=== PATIENT | female | born 1965 | race African-American/Black ===

== ENCOUNTER 2022-10-16 09:11 | Outpatient (REF) | payer BC, SELFPAY ==
[2022-10-16 11:19] LABS: MANUAL DIFF FLAG NO
[2022-10-16 11:25] LABS: Basophils Percent Auto 0.4 % (0-2); Eosinophils Absolute Auto 0.2 X10*3/uL (0.0-0.4); Eosinophils Percent Auto 2.5 % (0-4); Hematocrit 41.5 % (37.0-47.0); Hemoglobin 14.2 g/dl (12.0-16.0); Imm Gran Abs Auto 0.02 X10*3/uL (0.00-0.03); Imm Gran Pct Auto 0.3 % (0.0-0.4); Lymphocytes Absolute Auto 2.5 X10*3/uL (1.2-4.9); Lymphocytes Percent Auto 32.5 % (20-40); Mean Corpuscular HGB Conc 34.2 g/dl (31.0-35.0); Mean Corpuscular Hemoglobin 26.2 pg (27.0-33.0); Mean Corpuscular Volume 76.4 fL (80.0-98.0); Mean Platelet Volume 11.2 fL (9.4-12.3); Monocytes Absolute Auto 0.6 X10*3/uL (0.1-1.2); Monocytes Percent Auto 7.8 % (2-11); Neutrophils Absolute Auto 4.3 x10*3/uL (2.0-8.3); Neutrophils Percent Auto 56.5 % (45-73); Platelet Count 289 X10*3/uL (160-400); Red Blood Count 5.43 X10*6/uL (4.20-5.50); Red Cell Distribution Width 14.5 % (11.0-16.0); White Blood Count 7.5 X10*3/uL (4.8-10.8)
[2022-10-16 11:34] LABS: Alanine Aminotransferase 21 U/L (0-31); Albumin Level 4.3 g/dL (3.5-5.0); Alkaline Phosphatase 81 U/L (39-117); Anion Gap 15 (12-20); Aspartate Amino Transferase 18 U/L (5-31); Bilirubin Total 0.6 mg/dL (0.0-1.0); Blood Urea Nitrogen 22 mg/dL (9-16); Calcium 10.1 mg/dL (8.4-10.2); Carbon Dioxide 32 mmol/L (22-29); Chloride 98 mmol/L (96-108); Cholesterol 216 mg/dL; Estimated Glomerular Filt Rate > 60; Glucose Fasting 115 mg/dL (60-99); HDL Cholesterol 40 mg/dL; LDL Cholesterol Calculated 152 mg/dl; Potassium 3.9 mmol/L (3.3-5.1); Sodium 141 mmol/L (135-145); Total Protein 8.5 g/dL (6.5-8.0); Triglycerides 123 mg/dL
[2022-10-16 11:57] LABS: TSH reflex Free T4 0.55 uIU/mL (0.32-4.0)
== END 2022-10-16 09:12 | disposition home or self-care (01) ==
LOC: HO.HMGCLDS 09:11
PROVIDERS: PCP Internal Medicine; Visit Provider Internal Medicine
DX: Z00.01 Encounter for general adult medical examination with abnormal findings (principal); E66.01 Morbid (severe) obesity due to excess calories; I10 Essential (primary) hypertension
CPT/HCPCS: 36415; 80053; 80061; 84443; 85025

== ENCOUNTER 2023-03-09 07:56 | Outpatient (REF) | payer BC, SELFPAY ==
[2023-03-09 12:09] LABS: Estimated Average Glucose 114 mg/dL; Hemoglobin A1c % 5.6 %
[2023-03-09 12:32] LABS: Alanine Aminotransferase 22 U/L (0-31); Albumin Level 3.9 g/dL (3.5-5.0); Alkaline Phosphatase 80 U/L (39-117); Anion Gap 12 (12-20); Aspartate Amino Transferase 18 U/L (5-31); Bilirubin Total 0.3 mg/dL (0.0-1.0); Blood Urea Nitrogen 22 mg/dL (9-16); Calcium 9.6 mg/dL (8.4-10.2); Carbon Dioxide 29 mmol/L (22-29); Chloride 103 mmol/L (96-108); Cholesterol 144 mg/dL; Estimated Glomerular Filt Rate > 60; Glucose Fasting 112 mg/dL (60-99); HDL Cholesterol 38 mg/dL; LDL Cholesterol Calculated 90 mg/dl; Potassium 3.7 mmol/L (3.3-5.1); Sodium 140 mmol/L (135-145); Total Protein 7.6 g/dL (6.5-8.0); Triglycerides 80 mg/dL
== END 2023-03-09 07:57 | disposition home or self-care (01) ==
LOC: HO.HMGCLDS 07:56
PROVIDERS: PCP Internal Medicine; Visit Provider Internal Medicine
DX: E78.9 Disorder of lipoprotein metabolism, unspecified (principal); E66.01 Morbid (severe) obesity due to excess calories; I10 Essential (primary) hypertension; R73.01 Impaired fasting glucose; G89.29 Other chronic pain; M25.512 Pain in left shoulder
CPT/HCPCS: 36415; 80053; 80061; 83036

== ENCOUNTER 2023-05-31 12:24 | Outpatient (AMB) | payer OTHER, BC, SELFPAY ==
[2023-05-31 12:57] VITALS: BP 124/72; PULSE 84; TEMP 36.6; O2SAT 98
--- NOTE | 2023-05-31 12:57 | MHC.OFFWIV ---
Intake Vital Signs 05/31/23 12:57 Height 5 ft 3 in BP 124/72 Blood Pressure Location Lt brachial Position Sitting Pulse 84 Pulse Source Pulse Oximeter Temp 98 F Temp Source Temporal Artery Scan Pulse Oximetry (%) 98 Oxygen Delivery Method Room Air Intake Visit Reasons: EP Cough, Mucus, fever, Headache [phone] Intake Note: Pt is here c/o having a headache, and a bad cough for a few days. Patient Tobacco Use Status: Never used Tobacco Allergies doxycycline Allergy (Mild, Verified 05/31/23 13:59) Swelling latex Allergy (Mild, Verified 05/31/23 13:59) Itching levofloxacin [From Levaquin] Adverse Reaction (Mild, Verified 05/31/23 13:59) Swelling metronidazole [From Flagyl] Adverse Reaction (Mild, Verified 05/31/23 13:59) Swelling Medication List - Last Reconciled 05/31/23 by Benigno Martin MD esomeprazole magnesium (Nexium 24HR) 20 mg PO DAILY hydrochlorothiazide 25 mg PO DAILY metoprolol tartrate 25 mg PO BID 90 days naproxen 500 mg PO BID simvastatin 20 mg PO DAILY 90 days Do you need a note to return to daycare/school/sports/work: Yes HPI EP Cough, Mucus, fever, Headache [phone] HPI Details Patient presents for a sick visit. Reporting symptoms of sinus congestion, sore throat and difficulty swallowing. Low-grade fever. No family member is sick. No recent travel. Patient reports symptoms of malaise and fatigue. Symptoms present for the past 4 weeks PFSH Family History Mother Hypertension Obesity Lymphedema Brain tumor (benign) Father Hypertension Family/Other Family history of prostate cancer Family history of breast cancer Social History Housing: House Patient Tobacco Use Status: Never used Tobacco e-Cigarette/Vaping Use: Never Used Second Hand Smoke Exposure: No Current occupational status: employed Cognitive needs: No Hearing needs: No Vision needs: Yes Physical Exam Vital Signs: Last Vital Signs Temp 98 F 05/31/23 12:57 Pulse 84 05/31/23 12:57 BP 124/72 05/31/23 12:57 Pulse Ox 98 05/31/23 12:57 Oxygen Delivery Method Room Air 05/31/23 12:57 Const General: cooperative and healthy appearing Nutritional Appearance: well nourished Orientation/consciousness: patient oriented x3 Limitations: no limitations HEENT Head: Yes normal to inspection Eyes General: appearance normal, both eyes and all related structures Neck Neck: Yes normal visual inspection Chest Chest palpation & inspection: normal palpation of entire chest wall Resp Effort & Inspection: normal respiratory effort Neuro General: patient oriented x3 Assessment & Plan Assessment & Plan (1) Acute bronchitis: Code(s): J20.9 - Acute bronchitis, unspecified Plan: Chest x-ray was reviewed by me personally. No infiltrate seen. Antibiotics ordered. Increase fluid intake. Tylenol for aches and pains. If symptoms worsen, follow-up here for a recheck. Orders: Orders XR chest 2V Today J20.9 - Acute bronchitis, unspecified Coding Level of Care Code Est Pt Level 4 (17450) Diagnoses Acute bronchitis J20.9
== END 2023-05-31 15:12 | disposition home or self-care (01) ==
PROVIDERS: PCP Internal Medicine; Visit Provider Internal Medicine
DX: J20.9 Acute bronchitis, unspecified (principal)
CPT/HCPCS: 99214

== ENCOUNTER 2023-05-31 13:54 | Outpatient (REF) | payer BC, OTHER, SELFPAY | END 2023-05-31 13:55 | disposition home or self-care (01) | LOC: HO.HMGCX 13:54 | PROVIDERS: PCP Internal Medicine; Visit Provider Internal Medicine | DX: J20.9 Acute bronchitis, unspecified (principal) | CPT/HCPCS: 71046 ==

== ENCOUNTER 2023-07-07 09:04 | Outpatient (REF) | payer BC, SELFPAY ==
[2023-07-07 11:37] LABS: Estimated Average Glucose 111 mg/dL; Hemoglobin A1c % 5.5 %
[2023-07-07 12:04] LABS: Alanine Aminotransferase 27 U/L (0-31); Alkaline Phosphatase 70 U/L (39-117); Anion Gap 12 (12-20); Aspartate Amino Transferase 19 U/L (5-31); Bilirubin Total 0.4 mg/dL (0.0-1.0); Blood Urea Nitrogen 17 mg/dL (9-16); Calcium 10.3 mg/dL (8.4-10.2); Carbon Dioxide 31 mmol/L (22-29); Chloride 100 mmol/L (96-108); Estimated Glomerular Filt Rate > 60; Glucose Random 109 mg/dL (60-115); Potassium 3.5 mmol/L (3.3-5.1); Sodium 139 mmol/L (135-145); Total Protein 8.5 g/dL (6.5-8.0)
== END 2023-07-07 09:05 | disposition home or self-care (01) ==
LOC: HO.HMGCLDS 09:04
PROVIDERS: PCP Internal Medicine; Visit Provider Internal Medicine
DX: E66.01 Morbid (severe) obesity due to excess calories (principal); E78.9 Disorder of lipoprotein metabolism, unspecified; I10 Essential (primary) hypertension; R73.01 Impaired fasting glucose
CPT/HCPCS: 36415; 80053; 83036

== ENCOUNTER 2023-09-01 08:19 | Outpatient (AMB) | payer BC, SELFPAY ==
--- NOTE | 2023-09-01 08:23 | MHC.PC.OV ---
Vital Signs 09/01/23 08:27 Height 5 ft 3 in Weight 239 lb BMI 42.3 BP 130/82 Blood Pressure Location Lt brachial Position Sitting Pulse 105 H Pulse Source Pulse Oximeter Pulse Oximetry (%) 93 Oxygen Delivery Method Room Air Intake Visit Reasons: Follow-up Allergies doxycycline Allergy (Mild, Verified 09/01/23 08:24) Swelling latex Allergy (Mild, Verified 09/01/23 08:24) Itching levofloxacin [From Levaquin] Adverse Reaction (Mild, Verified 09/01/23 08:24) Swelling metronidazole [From Flagyl] Adverse Reaction (Mild, Verified 09/01/23 08:24) Swelling Medication List - Last Reconciled 09/01/23 by Javon Woody MD benzonatate 100 mg PO BID PRN 10 days esomeprazole magnesium (Nexium 24HR) 20 mg PO DAILY hydrochlorothiazide 25 mg PO DAILY metoprolol tartrate 25 mg PO BID 90 days naproxen 500 mg PO BID simvastatin 20 mg PO DAILY 90 days Tobacco use date assessed: 09/01/23 Dental Screening Dental Screen Date: 09/01/23 Did you have a dental visit in the last 12 months?: No Did you have a dental problem in the last 6 months where you did not have access to dental care?: No Was dental information given to patient?: Patient has dentist HPI Follow-up HPI Details Patient is a 58-year-old female came in today for her regular follow-up appointment Says that she lost weight after having meetings with the dietitian but then she went on a cruise and gained it back She will go back to her dieting again, her BMI is 42.3 Impaired fasting sugar: We are monitoring hemoglobin A1c, at that point patient just need to control her diet Blood pressure is stable patient is taking hydrochlorothiazide 25 mg and metoprolol 25 mg, tolerating medication Lipid disorder: LDL is also well controlled , patient is on simvastatin 20 mg and is tolerating it well. She continued to take naproxen 500 b.i.d. p.r.n. for shoulder pain which is chronic. Follow-up 4 months [facility] Family History Mother Hypertension Obesity Lymphedema Brain tumor (benign) Father Hypertension Family/Other Family history of prostate cancer Family history of breast cancer Social History Housing: House Patient Tobacco Use Status: Never used Tobacco e-Cigarette/Vaping Use: Never Used Second Hand Smoke Exposure: No Current occupational status: employed Cognitive needs: No Hearing needs: No Vision needs: Yes Questionnaire PHQ-9 Over the last 2 weeks, how often have you been bothered by any of the following problems? 1. Little interest or pleasure in doing things: not at all 2. Feeling down, depressed, or hopeless: not at all 3. Trouble falling or staying asleep, or sleeping too much: not at all 4. Feeling tired or having little energy: not at all 5. Poor appetite or overeating: not at all 6. Feeling bad about yourself - or that you are a failure or have let yourself or your family down: not at all 7. Trouble concentrating on things, such as reading the newspaper or watching television: not at all 8. Moving or speaking so slowly that other people could have noticed. Or the opposite - being so fidgety or restless that you have been moving around a lot more than usual: not at all 9. Thoughts that you would be better off or of hurting yourself in some way: not at all Total score: 0 Depression Screening Interpretation: Negative Depression Screening Done: Yes 05500 - PHQ-9 Billing: Yes Source: Developed by Drs. Errol Carrillo, Gabriela Bull, Mateo Jeter and colleagues, with an educational bhanu from [employer]. Thrive Questionnaire Date Thrive assessed: 09/01/23 I am a: Patient What is your living situation today?: I have a steady place to live Within the past 12 months, did the food you bought not last and you didn't have the money to get more?: Never true Within the past 12 months, did you worry whether your food would run out before you got money to buy more?: Never true Do you have trouble paying for medicines?: No Do you have trouble getting transportation to medical appointments?: No Do you have trouble paying your heating and electricity bill?: No Do you have trouble taking care of your child, family member or friend?: No Do you have trouble with day-to-day activities such as bathing, preparing meals, shopping, managing finances, etc.?: No Are you currently unemployed and looking for a job?: No Are you interested in more education?: No AUDIT C Alcohol Use Questionnaire (AUDIT-C) 1. How often do you have a drink containing alcohol?: Never 3. How often do you have six or more drinks on one occasion?: Never Total Score: 0 Score Reviewed/Action Taken: Yes KE-7 AMB Questionnaire KE-7 Date KE - 7 assessed: 09/01/23 Feeling nervous, anxious, or on edge: 0 = Not at all Not being able to stop or control worryin = Not at all Worrying too much about different things: 0 = Not at all Trouble relaxin = Not at all Being so restless that it is hard to sit still: 0 = Not at all Becoming easily annoyed or irritable: 0 = Not at all Feeling afraid as if something awful might happen: 0 = Not at all Total KE-7 score (0-4 normal; 5-9 mild; 10-14 moderate; 15-21 severe): 0 Source: Developed by Drs. Errol Carrillo, Gabriela Bull, Mateo Jeter and colleagues, with an educational bhanu from [employer]. KE-7 Assessment Billing KE-7 Assessment Tool: KE-7 Assessment 22941 Review of Systems Const Denies chills, Denies excessive sweating, Denies fever(s) and Denies poor appetite Eyes Denies blurry vision and Denies eye pain ENT Denies disequilibrium, Denies sore throat, Denies throat swelling and Denies tongue swelling Card Denies chest pain at rest, Denies radiating jaw, neck or arm pain and Denies paroxysmal nocturnal dyspnea Resp Denies cough and Denies hemoptysis GI Denies melena, Denies change in stool character, Denies coffee ground emesis and Denies vomiting Musc Reports as per HPI Skin/Breast Reports as per HPI Neuro Denies tremor(s) and Denies disequilibrium Endo Denies cold intolerance and Denies excessive sweating Aller/Immun Denies throat swelling and Denies tongue swelling Physical exam (Primary Care) Vital Signs: Last Vital Signs Pulse 105 H 09/01/23 08:27 BP 130/82 09/01/23 08:27 Pulse Ox 93 09/01/23 08:27 Oxygen Delivery Method Room Air 09/01/23 08:27 BMI result Body Mass Index 42.3 Tobacco/Smoking Status: Tobacco use Status Tobacco use date assessed 09/01/23 09/01/23 08:30 Patient Tobacco Use Status Never used Tobacco 09/01/23 08:30 e-Cigarette/Vaping Use Never Used 09/01/23 08:30 Depression Screening Interpretation: Negative Thrive Assessment: Date of Thrive Assessment Date Thrive assessed 08/07/22 09/01/23 08:30 Const General: cooperative, comfortable and no acute distress Orientation/consciousness: patient oriented x3 HENMT Head: Yes normocephalic and Yes atraumatic Ears: hearing grossly normal bilaterally Eyes General: appearance normal, both eyes and all related structures Neck Neck: Yes no lymphadenopathy and No tracheal deviation Resp Effort & Inspection: normal respiratory effort, able to speak in complete sentences and no audible wheezes Cardio Rhythm: regular rhythm Heart sounds: S1 normal heart sound present and S2 normal heart sound present GI Palpation (GI): Soft to palpation and nontender Auscultation: normal bowel sounds Skin General skin exam: turgor normal Neuro General: patient oriented x3 and moves all extremities Gait exam (Neuro): Normal gait present Extrem Right lower extremity: no edema Left lower extremity: no edema Psych Affect: normal affect Attitude: cooperative Assessment and Plan Assessment & Plan (1) Hypertension, essential: Code(s): I10 - Essential (primary) hypertension (2) Morbid obesity due to excess calories: Comment: If your BMI is between 25 and 29.9, you are overweight. If your BMI is 30 or greater, you are obese. ___ Being obese is a problem, because it increases the risks of many different health problems. It can also make it hard for you to move, breathe, and do other things that people who are at a healthy weight can do easily. Plus, being obese can be hard emotionally. ___ What are the health risks of being obese? Being obese increases a persons risk of developing many health problems. Here are just a few examples: __ Diabetes High blood pressure, High cholesterol, Heart disease (including heart attacks) Stroke, Sleep apnea (a disorder in which you stop breathing for short periods while asleep) Asthma, Cancer __ Does being obese shorten a persons life? Yes. Studies show that people who are obese younger than people who are a healthy weight. They also show that the risk of goes up the heavier a person is. The degree of increased risk depends on how long the person has been obese, and on what other medical problems he or she has. , Reduce your carbohydrate intake and choose carbs that are complex. Remember as a general rule of thumb, avoid highly processed foods. If it's white and soft, it's probably been stripped of its nutritional value. Change white bread to whole wheat bread, white rice to brown rice, white potatoes to sweet potatoes, white pasta to whole wheat pasta. Monitor portion sizes too: protein should be no bigger than your fist. Limit your red meat intake to only once or twice a wk. Eat more white meat but make sure to avoid creamy sauces etc. Broiling, baking or grilling is best. Increase dark, green leafy vegetables and fruits. Code(s): E66.01 - Morbid (severe) obesity due to excess calories (3) Impaired fasting blood sugar: Code(s): R73.01 - Impaired fasting glucose (4) Lipid disorder: Code(s): E78.9 - Disorder of lipoprotein metabolism, unspecified Plan Patient is a 58-year-old female came in today for her regular follow-up appointment Says that she lost weight after having meetings with the dietitian but then she went on a cruise and gained it back She will go back to her dieting again, her BMI is 42.3 Impaired fasting sugar: We are monitoring hemoglobin A1c, at that point patient just need to control her diet Blood pressure is stable patient is taking hydrochlorothiazide 25 mg and metoprolol 25 mg, tolerating medication Lipid disorder: LDL is also well controlled , patient is on simvastatin 20 mg and is tolerating it well. She continued to take naproxen 500 b.i.d. p.r.n. for shoulder pain which is chronic. Labs done in June reviewed with the patient Follow-up 4 months Coding Level of Care Code Est Pt Level 4 (19255) Diagnoses Hypertension, essential I10 Morbid obesity due to excess calories E66.01 Impaired fasting blood sugar R73.01 Lipid disorder E78.9 Additional Codes KE-7 Assessment Billing - KE-7 Assessment Tool: KE-7 Assessment 52770 ([id number])
[2023-09-01 08:27] VITALS: BP 130/82; PULSE 105; O2SAT 93; BMI 42.3
== END 2023-09-01 08:47 | disposition home or self-care (01) ==
PROVIDERS: PCP Internal Medicine; Visit Provider Internal Medicine
DX: I10 Essential (primary) hypertension (principal); E66.01 Morbid (severe) obesity due to excess calories; E78.9 Disorder of lipoprotein metabolism, unspecified; Z68.41 Body mass index [BMI] 40.0-44.9, adult; R73.01 Impaired fasting glucose
CPT/HCPCS: 99214

== ENCOUNTER 2024-01-12 09:14 | Outpatient (AMB) | payer BC, SELFPAY ==
[2024-01-12 09:22] VITALS: BP 122/84; PULSE 84; O2SAT 98; BMI 43.8
--- NOTE | 2024-01-12 09:22 | A.OFFPC_ITS ---
Vital Signs 3 01/12/24 09:22 Height 5 ft 3 in Weight 247 lb 6 oz BMI 43.8 BP 122/84 Blood Pressure Location Lt brachial Position Sitting Pulse 84 Pulse Source Pulse Oximeter Pulse Oximetry (%) 98 Oxygen Delivery Method Room Air Intake Visit Reasons: 4 month fu Allergies doxycycline Allergy (Mild, Verified 01/12/24 09:24) Swelling latex Allergy (Mild, Verified 01/12/24 09:24) Itching levofloxacin [From Levaquin] Adverse Reaction (Mild, Verified 01/12/24 09:24) Swelling metronidazole [From Flagyl] Adverse Reaction (Mild, Verified 01/12/24 09:24) Swelling Medication List - Last Reconciled 01/12/24 by Javon Woody MD esomeprazole magnesium (Nexium 24HR) 20 mg PO DAILY hydrochlorothiazide 25 mg PO DAILY metoprolol tartrate 25 mg PO BID 90 days naproxen 500 mg PO BID simvastatin 20 mg PO DAILY 90 days Tobacco use date assessed: 01/12/24 Dental Screening Dental Screen Date: 01/12/24 Did you have a dental visit in the last 12 months?: No Did you have a dental problem in the last 6 months where you did not have access to dental care?: No Was dental information given to patient?: Patient has dentist HPI 4 month fu 2 HPI0 Details Patient is a 58-year-old female came in today for her regular follow-up appointment Patient says that she be watching TV feel as if she need to take deep breaths, patient says that she feels as if she is anxious She also clenches her teeth at night She would like to start medication for anxiety, I have sent citalopram 10 mg tablets patient is to take half a tablet for a week and then full tablet She is also having pain in left breast off and on, however on examination there are no lumps or nipple discharge there is no skin changes Labs are due to be done today BMI is elevated patient need to lose weight Impaired fasting sugar: We are monitoring hemoglobin A1c, at that point patient just need to control her diet Blood pressure is stable patient is taking hydrochlorothiazide 25 mg and metoprolol 25 mg, tolerating medication Lipid disorder: LDL is also well controlled , patient is on simvastatin 20 mg and is tolerating it well. She continued to take naproxen 500 b.i.d. p.r.n. for shoulder pain which is chronic. We will book telemedicine visit in 3 weeks to follow-up on anxiety medication Follow-up 4 months [facility] Family History Mother Hypertension Obesity Lymphedema Brain tumor (benign) Father Hypertension Family/Other Family history of prostate cancer Family history of breast cancer Social History Housing: House Patient Tobacco Use Status: Never used Tobacco e-Cigarette/Vaping Use: Never Used Second Hand Smoke Exposure: No service: No Current occupational status: employed Cognitive needs: No Hearing needs: No Vision needs: Yes Questionnaire PHQ-9 Over the last 2 weeks, how often have you been bothered by any of the following problems? 1. Little interest or pleasure in doing things: not at all 2. Feeling down, depressed, or hopeless: not at all 3. Trouble falling or staying asleep, or sleeping too much: not at all 4. Feeling tired or having little energy: not at all 5. Poor appetite or overeating: not at all 6. Feeling bad about yourself - or that you are a failure or have let yourself or your family down: not at all 7. Trouble concentrating on things, such as reading the newspaper or watching television: not at all 8. Moving or speaking so slowly that other people could have noticed. Or the opposite - being so fidgety or restless that you have been moving around a lot more than usual: not at all 9. Thoughts that you would be better off or of hurting yourself in some way: not at all Total score: 0 Depression Screening Interpretation: Negative Depression Screening Done: Yes 28573 - PHQ-9 Billing: Yes Source: Developed by Drs. Errol Carrillo, Gabriela Bull, Mateo Jeter and colleagues, with an educational bhanu from [address] [employer] I. Thrive Questionnaire Date Thrive assessed: 01/12/24 I am a: Patient What is your living situation today?: I have a steady place to live Within the past 12 months, did the food you bought not last and you didn't have the money to get more?: Never true Within the past 12 months, did you worry whether your food would run out before you got money to buy more?: Never true Do you have trouble paying for medicines?: No Do you have trouble getting transportation to medical appointments?: No Do you have trouble paying your heating and electricity bill?: No Do you have trouble taking care of your child, family member or friend?: No Do you have trouble with day-to-day activities such as bathing, preparing meals, shopping, managing finances, etc.?: No Are you currently unemployed and looking for a job?: No Are you interested in more education?: No Please select the resources that you would like help with: None Currently or been in a relationship where the following occur: no concerns reported THRIVE Score: 0 AUDIT C Alcohol Use Questionnaire (AUDIT-C) 1. How often do you have a drink containing alcohol?: Monthly or less 2. How many drinks containing alcohol do you have on a typical day when you are drinking?: 1 or 2 3. How often do you have six or more drinks on one occasion?: Never Total Score: 1 Score Reviewed/Action Taken: Yes KE-7 AMB Questionnaire KE-7 Date KE - 7 assessed: 01/12/24 Feeling nervous, anxious, or on edge: 0 = Not at all Not being able to stop or control worryin = Not at all Worrying too much about different things: 0 = Not at all Trouble relaxin = Several days Being so restless that it is hard to sit still: 0 = Not at all Becoming easily annoyed or irritable: 0 = Not at all Feeling afraid as if something awful might happen: 0 = Not at all Total KE-7 score (0-4 normal; 5-9 mild; 10-14 moderate; 15-21 severe): 1 Source: Developed by Drs. Errol Carrillo, Gabriela Bull, Maeto Jeter and colleagues, with an educational bhanu from [address] [employer] I. KE-7 Assessment Billing KE-7 Assessment Tool: KE-7 Assessment 07103 Review of Systems Const Denies chills and Denies fever(s) ENT Denies epistaxis and Denies nasal discharge Card Denies chest pain Resp Denies chest congestion, Denies cough and Denies hemoptysis GI Denies diarrhea and Denies nausea Skin/Breast Denies rash Neuro Reports no additional complaints Psych Reports no additional complaints Endo Reports no additional complaints Physical exam (Primary Care) Vital Signs: Last Vital Signs Pulse 84 01/12/24 09:22 BP 122/84 01/12/24 09:22 Pulse Ox 98 01/12/24 09:22 Oxygen Delivery Method Room Air 01/12/24 09:22 BMI result Body Mass Index 43.8 Tobacco/Smoking Status: Tobacco use Status Tobacco use date assessed 01/12/24 01/12/24 09:25 Patient Tobacco Use Status Never used Tobacco 01/12/24 09:25 e-Cigarette/Vaping Use Never Used 01/12/24 09:25 PHQ-9: PHQ-9 Score PHQ-9: Total score 0 01/12/24 09:52 Depression Screening Interpretation: Negative Thrive Assessment: Date of Thrive Assessment Date Thrive assessed 01/12/24 01/12/24 09:27 Currently or been in a relationship where the following occur: no concerns reported Const General: cooperative, comfortable and no acute distress Orientation/consciousness: patient oriented x3 HENMT Head: Yes normocephalic Eyes General: appearance normal, both eyes and all related structures Neck Neck: Yes supple Chest Chest/axillae images: 2 1. No lumps felt, no nipple discharge, no skin changes Resp Effort & Inspection: normal respiratory effort, no cough and no stridor Cardio Rhythm: regular rhythm Heart sounds: S1 normal heart sound present and S2 normal heart sound present Skin General skin exam: turgor normal Neuro General: patient oriented x3, tone normal and moves all extremities Extrem Right lower extremity: no edema Left lower extremity: no edema Assessment and Plan Assessment & Plan (1) Hypertension, essential: Code(s): I10 - Essential (primary) hypertension (2) Lipid disorder: Code(s): E78.9 - Disorder of lipoprotein metabolism, unspecified (3) Impaired fasting blood sugar: Code(s): R73.01 - Impaired fasting glucose (4) Morbid obesity due to excess calories: Comment: If your BMI is between 25 and 29.9, you are overweight. If your BMI is 30 or greater, you are obese. ___ Being obese is a problem, because it increases the risks of many different health problems. It can also make it hard for you to move, breathe, and do other things that people who are at a healthy weight can do easily. Plus, being obese can be hard emotionally. ___ What are the health risks of being obese? Being obese increases a persons risk of developing many health problems. Here are just a few examples: __ Diabetes High blood pressure, High cholesterol, Heart disease (including heart attacks) Stroke, Sleep apnea (a disorder in which you stop breathing for short periods while asleep) Asthma, Cancer __ Does being obese shorten a persons life? Yes. Studies show that people who are obese younger than people who are a healthy weight. They also show that the risk of goes up the heavier a person is. The degree of increased risk depends on how long the person has been obese, and on what other medical problems he or she has. , Reduce your carbohydrate intake and choose carbs that are complex. Remember as a general rule of thumb, avoid highly processed foods. If it's white and soft, it's probably been stripped of its nutritional value. Change white bread to whole wheat bread, white rice to brown rice, white potatoes to sweet potatoes, white pasta to whole wheat pasta. Monitor portion sizes too: protein should be no bigger than your fist. Limit your red meat intake to only once or twice a wk. Eat more white meat but make sure to avoid creamy sauces etc. Broiling, baking or grilling is best. Increase dark, green leafy vegetables and fruits. Code(s): E66.01 - Morbid (severe) obesity due to excess calories (5) Anxiety, generalized: Code(s): F41.1 - Generalized anxiety disorder (6) Breast pain, left: Code(s): N64.4 - Mastodynia Plan Patient is a 58-year-old female came in today for her regular follow-up appointment Patient says that she be watching TV feel as if she need to take deep breaths, patient says that she feels as if she is anxious She also clenches her teeth at night She would like to start medication for anxiety, I have sent citalopram 10 mg tablets patient is to take half a tablet for a week and then full tablet She is also having pain in left breast off and on, however on examination there are no lumps or nipple discharge there is no skin changes Labs are due to be done today BMI is elevated patient need to lose weight Impaired fasting sugar: We are monitoring hemoglobin A1c, at that point patient just need to control her diet Blood pressure is stable patient is taking hydrochlorothiazide 25 mg and metoprolol 25 mg, tolerating medication Lipid disorder: LDL is also well controlled , patient is on simvastatin 20 mg and is tolerating it well. She continued to take naproxen 500 b.i.d. p.r.n. for shoulder pain which is chronic. We will book telemedicine visit in 3 weeks to follow-up on anxiety medication Follow-up 4 months Orders: Orders 2 Complete Blood Count Auto Diff Today E66.01 - Morbid (severe) obesity due to excess calories, E78.9 - Disorder of lipoprotein metabolism, unspecified, I10 - Essential (primary) hypertension, R73.01 - Impaired fasting glucose Comprehensive Met. Panel Today E66.01 - Morbid (severe) obesity due to excess calories, E78.9 - Disorder of lipoprotein metabolism, unspecified, I10 - Essential (primary) hypertension, R73.01 - Impaired fasting glucose LDL Cholesterol Direct Today E66.01 - Morbid (severe) obesity due to excess calories, E78.9 - Disorder of lipoprotein metabolism, unspecified, I10 - Essential (primary) hypertension, R73.01 - Impaired fasting glucose Medications: New 2 escitalopram oxalate (Lexapro) 10 mg PO DAILY 30 tabs 0RF Coding Level of Care Code Est Pt Level 4 (64318) Diagnoses Hypertension, essential I10 Lipid disorder E78.9 Impaired fasting blood sugar R73.01 Morbid obesity due to excess calories E66.01 Anxiety, generalized F41.1 Breast pain, left N64.4 Additional Codes KE-7 Assessment Billing - KE-7 Assessment Tool: KE-7 Assessment 74944 ([id number])
== END 2024-01-12 09:53 | disposition home or self-care (01) ==
PROVIDERS: PCP Internal Medicine; Visit Provider Internal Medicine
DX: I10 Essential (primary) hypertension (principal); E66.01 Morbid (severe) obesity due to excess calories; Z68.41 Body mass index [BMI] 40.0-44.9, adult; E78.9 Disorder of lipoprotein metabolism, unspecified; R73.01 Impaired fasting glucose; F41.1 Generalized anxiety disorder; N64.4 Mastodynia
CPT/HCPCS: 99214

== ENCOUNTER 2024-01-12 09:54 | Outpatient (REF) | payer BC, SELFPAY ==
[2024-01-12 13:19] LABS: MANUAL DIFF FLAG NO
[2024-01-12 13:41] LABS: Basophils Percent Auto 0.3 % (0-2); Eosinophils Absolute Auto 0.1 X10*3/uL (0.0-0.4); Eosinophils Percent Auto 2.3 % (0-4); Hematocrit 39.7 % (37.0-47.0); Hemoglobin 13.7 g/dl (12.0-16.0); Imm Gran Abs Auto 0.01 X10*3/uL (0.00-0.03); Imm Gran Pct Auto 0.2 % (0.0-0.4); Lymphocytes Percent Auto 32.1 % (20-40); Mean Corpuscular HGB Conc 34.5 g/dl (31.0-35.0); Mean Corpuscular Hemoglobin 26.9 pg (27.0-33.0); Mean Corpuscular Volume 77.8 fL (80.0-98.0); Monocytes Absolute Auto 0.5 X10*3/uL (0.1-1.2); Monocytes Percent Auto 8.3 % (2-11); Neutrophils Absolute Auto 3.5 x10*3/uL (2.0-8.3); Neutrophils Percent Auto 56.8 % (45-73); Platelet Count 260 X10*3/uL (160-400); Red Cell Distribution Width 14.2 % (11.0-16.0); White Blood Count 6.1 X10*3/uL (4.8-10.8)
[2024-01-12 13:53] LABS: Alanine Aminotransferase 22 U/L (0-31); Albumin Level 3.9 g/dL (3.5-5.0); Alkaline Phosphatase 70 U/L (39-117); Anion Gap 10 (12-20); Aspartate Amino Transferase 19 U/L (5-31); Bilirubin Total 0.3 mg/dL (0.0-1.0); Blood Urea Nitrogen 22 mg/dL (9-16); Calcium 10.2 mg/dL (8.4-10.2); Carbon Dioxide 34 mmol/L (22-29); Chloride 103 mmol/L (96-108); Estimated Glomerular Filt Rate > 60; Glucose Random 102 mg/dL (60-115); Sodium 143 mmol/L (135-145)
[2024-01-13 14:08] LABS: LDL Cholesterol Direct 74 mg/dL (<100)
== END 2024-01-12 09:55 | disposition home or self-care (01) ==
LOC: HO.HMGCLDS 09:54
PROVIDERS: PCP Internal Medicine; Visit Provider Internal Medicine
DX: E78.9 Disorder of lipoprotein metabolism, unspecified (principal); R73.01 Impaired fasting glucose; E66.01 Morbid (severe) obesity due to excess calories; I10 Essential (primary) hypertension
CPT/HCPCS: 36415; 80053; 83721; 85025

== ENCOUNTER 2024-02-03 08:47 | Outpatient (AMB) | payer BC, SELFPAY ==
--- NOTE | 2024-02-03 08:45 | MHC.PC.OV ---
Intake Visit Reasons: 3 week Follow up Intake Note: [phone] iPhone Allergies doxycycline Allergy (Mild, Verified 02/03/24 08:45) Swelling latex Allergy (Mild, Verified 02/03/24 08:45) Itching levofloxacin [From Levaquin] Adverse Reaction (Mild, Verified 02/03/24 08:45) Swelling metronidazole [From Flagyl] Adverse Reaction (Mild, Verified 02/03/24 08:45) Swelling Medication List - Last Reconciled 02/03/24 by Javon Woody MD escitalopram oxalate (Lexapro) 10 mg PO DAILY esomeprazole magnesium (Nexium 24HR) 20 mg PO DAILY hydrochlorothiazide 25 mg PO DAILY metoprolol tartrate 25 mg PO BID 90 days naproxen 500 mg PO BID simvastatin 20 mg PO DAILY 90 days Tobacco use date assessed: 02/03/24 Dental Screening Dental Screen Date: 02/03/24 Did you have a dental visit in the last 12 months?: Yes Did you have a dental problem in the last 6 months where you did not have access to dental care?: No Was dental information given to patient?: Patient has dentist HPI 3 week Follow up HPI Details Patient is a 58 year old female this is a video conference I started her on Lexapro 10 mg few days ago when patient verbalized to feeling anxious She is tolerating medication and is feeling better, patient says that she is able to sleep through the night And when she is watching TV she is not feeling as anxious as before For now we going to continue with the 10 mg of Lexapro she has appointment end of March we will re-evaluate and increase the dose if needed Labs were done recently reviewed with the patient. [facility] Family History Mother Hypertension Obesity Lymphedema Brain tumor (benign) Father Hypertension Family/Other Family history of prostate cancer Family history of breast cancer Social History Housing: House Patient Tobacco Use Status: Never used Tobacco e-Cigarette/Vaping Use: Never Used Second Hand Smoke Exposure: No service: No Current occupational status: employed Cognitive needs: No Hearing needs: No Vision needs: Yes Questionnaire Thrive Questionnaire Date Thrive assessed: 01/12/24 AUDIT C Alcohol Use Questionnaire (AUDIT-C) 1. How often do you have a drink containing alcohol?: Never 3. How often do you have six or more drinks on one occasion?: Never Total Score: 0 KE-7 AMB Questionnaire KE-7 Date KE - 7 assessed: 01/12/24 Source: Developed by Drs. Errol Carrillo, Gabriela Bull, Mateo Jeter and colleagues, with an educational bhanu from [employer]. Review of Systems Const Denies chills and Denies fever(s) ENT Denies epistaxis and Denies nasal discharge Card Denies chest pain Resp Denies chest congestion, Denies cough and Denies hemoptysis GI Denies diarrhea and Denies nausea Skin/Breast Denies rash Neuro Reports no additional complaints Psych Reports no additional complaints Endo Reports no additional complaints Physical exam (Primary Care) Tobacco/Smoking Status: Tobacco use Status Tobacco use date assessed 02/03/24 02/03/24 08:47 Patient Tobacco Use Status Never used Tobacco 02/03/24 08:47 e-Cigarette/Vaping Use Never Used 02/03/24 08:47 Thrive Assessment: Date of Thrive Assessment Date Thrive assessed 01/12/24 02/03/24 08:47 Telehealth Telehealth Location of provider rendering services: practice address Location of patient: address on file Patient Identification confirmed using: Name, : Yes Telehealth method: video Patient verbally consented to treatment: Yes Patient verbally consented to billing insurance company: Yes Patient informed of any privacy concerns related to visit: Yes Minutes spent on Phone/Video with Pt.: 13 Assessment and Plan Assessment & Plan (1) Anxiety, generalized: Code(s): F41.1 - Generalized anxiety disorder Plan Patient is a 58 year old female this is a video conference I started her on Lexapro 10 mg few days ago when patient verbalized to feeling anxious She is tolerating medication and is feeling better, patient says that she is able to sleep through the night And when she is watching TV she is not feeling as anxious as before For now we going to continue with the 10 mg of Lexapro she has appointment end of March we will re-evaluate and increase the dose if needed Labs were done recently reviewed with the patient. Medications: Refilled escitalopram oxalate (Lexapro) 10 mg PO DAILY 90 tabs 0RF Coding Level of Care Code Tele Est Pt Level 3 (94480) Diagnoses Anxiety, generalized F41.1
== END 2024-02-03 15:14 | disposition home or self-care (01) ==
LOC: HO.HMGC 08:47
PROVIDERS: PCP Internal Medicine; Visit Provider Internal Medicine
DX: F41.1 Generalized anxiety disorder (principal)
CPT/HCPCS: 99213

== ENCOUNTER 2024-05-05 08:07 | Outpatient (AMB) | payer BC, SELFPAY ==
--- NOTE | 2024-05-05 08:08 | MHC.PC.OV ---
Vital Signs 05/05/24 08:10 Height 5 ft 3 in Weight 244 lb BMI 43.2 BP 110/76 Blood Pressure Location Lt brachial Position Sitting Pulse 82 Pulse Source Pulse Oximeter Pulse Oximetry (%) 96 Oxygen Delivery Method Room Air Intake Visit Reasons: Follow up Allergies doxycycline Allergy (Mild, Verified 05/05/24 08:10) Swelling latex Allergy (Mild, Verified 05/05/24 08:10) Itching levofloxacin [From Levaquin] Adverse Reaction (Mild, Verified 05/05/24 08:10) Swelling metronidazole [From Flagyl] Adverse Reaction (Mild, Verified 05/05/24 08:10) Swelling Medication List - Last Reconciled 05/05/24 by Javon Woody MD escitalopram oxalate 20 mg PO DAILY esomeprazole magnesium (Nexium 24HR) 20 mg PO DAILY hydrochlorothiazide 25 mg PO DAILY metoprolol tartrate 25 mg PO BID 90 days naproxen 500 mg PO BID simvastatin 20 mg PO DAILY 90 days Tobacco use date assessed: 02/03/24 Dental Screening Dental Screen Date: 02/03/24 HPI Follow up HPI Details Patient is a 59-year-old female came in today for her regular follow-up appointment Anxiety stable patient is on escitalopram 20 mg daily and is tolerating medication Labs are due to be done today BMI is elevated patient need to lose weight Impaired fasting sugar: We are monitoring hemoglobin A1c, at that point patient just need to control her diet Blood pressure is stable patient is taking hydrochlorothiazide 25 mg and metoprolol 25 mg, tolerating medication Lipid disorder: LDL is also well controlled , patient is on simvastatin 20 mg and is tolerating it well. She continued to take naproxen 500 b.i.d. p.r.n. for shoulder pain which is chronic. Offer no new complaints Follow-up early August [facility] Family History Mother Hypertension Obesity Lymphedema Brain tumor (benign) Father Hypertension Family/Other Family history of prostate cancer Family history of breast cancer Social History Housing: House Patient Tobacco Use Status: Never used Tobacco e-Cigarette/Vaping Use: Never Used Second Hand Smoke Exposure: No service: No Current occupational status: employed Cognitive needs: No Hearing needs: No Vision needs: Yes Questionnaire Thrive Questionnaire Date Thrive assessed: 01/12/24 KE-7 AMB Questionnaire KE-7 Date KE - 7 assessed: 01/12/24 Source: Developed by Drs. Errol Carrillo, Gabriela Bull, Mateo Jeter and colleagues, with an educational bhanu from [employer]. Review of Systems Const Denies chills and Denies fever(s) ENT Denies epistaxis and Denies nasal discharge Card Denies chest pain Resp Denies chest congestion, Denies cough and Denies hemoptysis GI Denies diarrhea and Denies nausea Skin/Breast Denies rash Neuro Reports no additional complaints Psych Reports no additional complaints Endo Reports no additional complaints Physical exam (Primary Care) Vital Signs: Last Vital Signs Pulse 82 05/05/24 08:10 BP 110/76 05/05/24 08:10 Pulse Ox 96 05/05/24 08:10 Oxygen Delivery Method Room Air 05/05/24 08:10 BMI result Body Mass Index 43.2 Tobacco/Smoking Status: Tobacco use Status Tobacco use date assessed 02/03/24 05/05/24 08:12 Patient Tobacco Use Status Never used Tobacco 05/05/24 08:12 e-Cigarette/Vaping Use Never Used 05/05/24 08:12 Thrive Assessment: Date of Thrive Assessment Date Thrive assessed 01/12/24 05/05/24 08:12 Const General: cooperative, comfortable and no acute distress Orientation/consciousness: patient oriented x3 HENMT Head: Yes normocephalic Eyes General: appearance normal, both eyes and all related structures Neck Neck: Yes supple Resp Effort & Inspection: normal respiratory effort, no cough and no stridor Cardio Rhythm: regular rhythm Heart sounds: S1 normal heart sound present and S2 normal heart sound present Skin General skin exam: turgor normal Neuro General: patient oriented x3, tone normal and moves all extremities Extrem Right lower extremity: no edema Left lower extremity: no edema Assessment and Plan Assessment & Plan (1) Lipid disorder: Code(s): E78.9 - Disorder of lipoprotein metabolism, unspecified (2) Impaired fasting blood sugar: Code(s): R73.01 - Impaired fasting glucose (3) Hypertension, essential: Code(s): I10 - Essential (primary) hypertension (4) Morbid obesity due to excess calories: Comment: If your BMI is between 25 and 29.9, you are overweight. If your BMI is 30 or greater, you are obese. ___ Being obese is a problem, because it increases the risks of many different health problems. It can also make it hard for you to move, breathe, and do other things that people who are at a healthy weight can do easily. Plus, being obese can be hard emotionally. ___ What are the health risks of being obese? Being obese increases a persons risk of developing many health problems. Here are just a few examples: __ Diabetes High blood pressure, High cholesterol, Heart disease (including heart attacks) Stroke, Sleep apnea (a disorder in which you stop breathing for short periods while asleep) Asthma, Cancer __ Does being obese shorten a persons life? Yes. Studies show that people who are obese younger than people who are a healthy weight. They also show that the risk of goes up the heavier a person is. The degree of increased risk depends on how long the person has been obese, and on what other medical problems he or she has. , Reduce your carbohydrate intake and choose carbs that are complex. Remember as a general rule of thumb, avoid highly processed foods. If it's white and soft, it's probably been stripped of its nutritional value. Change white bread to whole wheat bread, white rice to brown rice, white potatoes to sweet potatoes, white pasta to whole wheat pasta. Monitor portion sizes too: protein should be no bigger than your fist. Limit your red meat intake to only once or twice a wk. Eat more white meat but make sure to avoid creamy sauces etc. Broiling, baking or grilling is best. Increase dark, green leafy vegetables and fruits. Code(s): E66.01 - Morbid (severe) obesity due to excess calories (5) Anxiety, generalized: Code(s): F41.1 - Generalized anxiety disorder Plan Patient is a 59-year-old female came in today for her regular follow-up appointment Anxiety stable patient is on escitalopram 20 mg daily and is tolerating medication Labs are due to be done today BMI is elevated patient need to lose weight Impaired fasting sugar: We are monitoring hemoglobin A1c, at that point patient just need to control her diet Blood pressure is stable patient is taking hydrochlorothiazide 25 mg and metoprolol 25 mg, tolerating medication Lipid disorder: LDL is also well controlled , patient is on simvastatin 20 mg and is tolerating it well. She continued to take naproxen 500 b.i.d. p.r.n. for shoulder pain which is chronic. Offer no new complaints Follow-up early August Orders: Orders Complete Blood Count Auto Diff Today E66.01 - Morbid (severe) obesity due to excess calories, E78.9 - Disorder of lipoprotein metabolism, unspecified, F41.1 - Generalized anxiety disorder, I10 - Essential (primary) hypertension, R73.01 - Impaired fasting glucose Hemoglobin A1c Today R73.01 - Impaired fasting glucose Comprehensive [place]. Panel Fast Today E66.01 - Morbid (severe) obesity due to excess calories, E78.9 - Disorder of lipoprotein metabolism, unspecified, F41.1 - Generalized anxiety disorder, I10 - Essential (primary) hypertension, R73.01 - Impaired fasting glucose Lipid Panel Today E66.01 - Morbid (severe) obesity due to excess calories, E78.9 - Disorder of lipoprotein metabolism, unspecified, F41.1 - Generalized anxiety disorder, I10 - Essential (primary) hypertension, R73.01 - Impaired fasting glucose Coding Level of Care Code Est Pt Level 4 (49407) Diagnoses Lipid disorder E78.9 Impaired fasting blood sugar R73.01 Hypertension, essential I10 Morbid obesity due to excess calories E66.01 Anxiety, generalized F41.1
[2024-05-05 08:10] VITALS: BP 110/76; PULSE 82; O2SAT 96; BMI 43.2
== END 2024-05-05 08:43 | disposition home or self-care (01) ==
PROVIDERS: PCP Internal Medicine; Visit Provider Internal Medicine
DX: E78.9 Disorder of lipoprotein metabolism, unspecified (principal); E66.01 Morbid (severe) obesity due to excess calories; Z68.41 Body mass index [BMI] 40.0-44.9, adult; R73.01 Impaired fasting glucose; I10 Essential (primary) hypertension; F41.1 Generalized anxiety disorder
CPT/HCPCS: 99214

== ENCOUNTER 2024-05-05 08:30 | Outpatient (REF) | payer BC, SELFPAY ==
[2024-05-05 10:28] LABS: MANUAL DIFF FLAG NO
[2024-05-05 10:35] LABS: Basophils Percent Auto 0.5 % (0-2); Eosinophils Absolute Auto 0.1 X10*3/uL (0.0-0.4); Eosinophils Percent Auto 1.8 % (0-4); Hematocrit 40.3 % (37.0-47.0); Hemoglobin 13.9 g/dl (12.0-16.0); Imm Gran Abs Auto 0.02 X10*3/uL (0.00-0.03); Imm Gran Pct Auto 0.3 % (0.0-0.4); Lymphocytes Absolute Auto 1.8 X10*3/uL (1.2-4.9); Lymphocytes Percent Auto 29.8 % (20-40); Mean Corpuscular HGB Conc 34.5 g/dl (31.0-35.0); Mean Corpuscular Hemoglobin 26.6 pg (27.0-33.0); Mean Corpuscular Volume 77.2 fL (80.0-98.0); Mean Platelet Volume 10.8 fL (9.4-12.3); Monocytes Absolute Auto 0.5 X10*3/uL (0.1-1.2); Neutrophils Absolute Auto 3.7 x10*3/uL (2.0-8.3); Neutrophils Percent Auto 59.6 % (45-73); Platelet Count 264 X10*3/uL (160-400); Red Blood Count 5.22 X10*6/uL (4.20-5.50); Red Cell Distribution Width 14.3 % (11.0-16.0); White Blood Count 6.1 X10*3/uL (4.8-10.8)
[2024-05-05 10:38] LABS: Estimated Average Glucose 117 mg/dL; Hemoglobin A1c % 5.7 % (<6.0)
[2024-05-05 11:03] LABS: Alanine Aminotransferase 21 U/L (0-31); Albumin Level 4.1 g/dL (3.5-5.0); Alkaline Phosphatase 73 U/L (39-117); Anion Gap 12 (12-20); Aspartate Amino Transferase 18 U/L (5-31); Bilirubin Total 0.3 mg/dL (0.0-1.0); Blood Urea Nitrogen 21 mg/dL (9-16); Calcium 10.1 mg/dL (8.4-10.2); Carbon Dioxide 30 mmol/L (22-29); Chloride 100 mmol/L (96-108); Cholesterol 150 mg/dL (<200); Estimated Glomerular Filt Rate > 60; Glucose Fasting 110 mg/dL (60-99); HDL Cholesterol 40 mg/dL (>40); LDL Cholesterol Calculated 91 mg/dL (<100); Potassium 3.7 mmol/L (3.3-5.1); Sodium 138 mmol/L (135-145); Total Protein 8.2 g/dL (6.5-8.0); Triglycerides 95 mg/dL (<150)
== END 2024-05-05 08:31 | disposition home or self-care (01) ==
LOC: HO.HMGCLDS 08:30
PROVIDERS: PCP Internal Medicine; Visit Provider Internal Medicine
DX: E78.9 Disorder of lipoprotein metabolism, unspecified (principal); R73.01 Impaired fasting glucose; I10 Essential (primary) hypertension; E66.01 Morbid (severe) obesity due to excess calories; F41.1 Generalized anxiety disorder
CPT/HCPCS: 36415; 80053; 80061; 83036; 85025

== ENCOUNTER 2024-06-30 12:00 | Outpatient (AMB) | payer BC, SELFPAY ==
--- NOTE | 2024-06-30 12:01 | MHC.PC.OV ---
Vital Signs 06/30/24 12:02 Height 5 ft 3 in Weight 243 lb BMI 43.0 BP 134/78 Blood Pressure Location Rt brachial Position Sitting Pulse 75 Pulse Source Pulse Oximeter Pulse Oximetry (%) 96 Oxygen Delivery Method Room Air Intake Visit Reasons: Bowel INC Allergies doxycycline Allergy (Mild, Verified 06/30/24 12:02) Swelling latex Allergy (Mild, Verified 06/30/24 12:02) Itching levofloxacin [From Levaquin] Adverse Reaction (Mild, Verified 06/30/24 12:02) Swelling metronidazole [From Flagyl] Adverse Reaction (Mild, Verified 06/30/24 12:02) Swelling Medication List - Last Reconciled 06/30/24 by Javon Woody MD escitalopram oxalate 20 mg PO DAILY esomeprazole magnesium (Nexium 24HR) 20 mg PO DAILY hydrochlorothiazide 25 mg PO DAILY metoprolol tartrate 25 mg PO BID 90 days naproxen 500 mg PO BID simvastatin 20 mg PO DAILY 90 days Tobacco use date assessed: 06/30/24 Dental Screening Dental Screen Date: 06/30/24 Did you have a dental visit in the last 12 months?: Yes Did you have a dental problem in the last 6 months where you did not have access to dental care?: No Was dental information given to patient?: Patient has dentist HPI Bowel INC HPI Details 59-year-old female came in today to talk about rectal incontinence Patient says that it has had happened before but not to an extent that she had recently Patient says that few days ago it has happened but at that time she was having a stomach bug so she did not think too much of it But then the other day she got up from bed in the morning and she had incontinence and at that time she was not feeling sick in her stomach She does have history of IBS diarrhea predominant alternate with constipation She is taking no laxatives Patient says that when it happened initially she started taking probiotic and it that did help She had colonoscopy 9 years ago and that was within normal limit She is almost due for colonoscopy as well There is no blood in stool is no nausea vomiting no abdominal pain there is no fever I am treating her with dicyclomine to be taken 20 minutes before meal I have also placed referral for her to be evaluated by colorectal surgeon. PFSH Family History Mother Hypertension Obesity Lymphedema Brain tumor (benign) Father Hypertension Family/Other Family history of prostate cancer Family history of breast cancer Social History Housing: House Patient Tobacco Use Status: Never used Tobacco e-Cigarette/Vaping Use: Never Used Second Hand Smoke Exposure: No service: No Current occupational status: employed Cognitive needs: No Hearing needs: No Vision needs: Yes Questionnaire PHQ-9 Over the last 2 weeks, how often have you been bothered by any of the following problems? 1. Little interest or pleasure in doing things: not at all 2. Feeling down, depressed, or hopeless: not at all 3. Trouble falling or staying asleep, or sleeping too much: not at all 4. Feeling tired or having little energy: not at all 5. Poor appetite or overeating: not at all 6. Feeling bad about yourself - or that you are a failure or have let yourself or your family down: not at all 7. Trouble concentrating on things, such as reading the newspaper or watching television: not at all 8. Moving or speaking so slowly that other people could have noticed. Or the opposite - being so fidgety or restless that you have been moving around a lot more than usual: not at all 9. Thoughts that you would be better off or of hurting yourself in some way: not at all Total score: 0 Depression Screening Interpretation: Negative Depression Screening Done: Yes 88669 - PHQ-9 Billing: Yes Source: Developed by Drs. Errol Carrillo, Gabriela Bull, Mateo Jeter and colleagues, with an educational bhanu from [employer]. Thrive Questionnaire Date Thrive assessed: 06/30/24 I am a: Patient What is your living situation today?: I have a steady place to live Within the past 12 months, did the food you bought not last and you didn't have the money to get more?: Never true Within the past 12 months, did you worry whether your food would run out before you got money to buy more?: Never true Do you have trouble paying for medicines?: No Do you have trouble getting transportation to medical appointments?: No Do you have trouble paying your heating and electricity bill?: No Do you have trouble taking care of your child, family member or friend?: No Do you have trouble with day-to-day activities such as bathing, preparing meals, shopping, managing finances, etc.?: No Are you currently unemployed and looking for a job?: No Are you interested in more education?: No Please select the resources that you would like help with: Housing/Group Home Currently or been in a relationship where the following occur: No concerns reported THRIVE Score: 0 AUDIT C Alcohol Use Questionnaire (AUDIT-C) 1. How often do you have a drink containing alcohol?: Monthly or less 2. How many drinks containing alcohol do you have on a typical day when you are drinking?: 1 or 2 3. How often do you have six or more drinks on one occasion?: Never Total Score: 1 Score Reviewed/Action Taken: Yes KE-7 AMB Questionnaire KE-7 Date KE - 7 assessed: 06/30/24 Feeling nervous, anxious, or on edge: 0 = Not at all Not being able to stop or control worryin = Not at all Worrying too much about different things: 0 = Not at all Trouble relaxin = Not at all Being so restless that it is hard to sit still: 0 = Not at all Becoming easily annoyed or irritable: 0 = Not at all Feeling afraid as if something awful might happen: 0 = Not at all Total KE-7 score (0-4 normal; 5-9 mild; 10-14 moderate; 15-21 severe): 0 Source: Developed by Drs. Errol Carrillo, Gabriela Bull, Mateo Jeter and colleagues, with an educational bhanu from [employer]. KE-7 Assessment Billing KE-7 Assessment Tool: KE-7 Assessment 80210 Review of Systems Const Denies chills and Denies fever(s) ENT Denies epistaxis and Denies nasal discharge Card Denies chest pain Resp Denies chest congestion, Denies cough and Denies hemoptysis GI Denies nausea Skin/Breast Denies rash Neuro Reports no additional complaints Psych Reports no additional complaints Endo Reports no additional complaints Physical exam (Primary Care) Vital Signs: Last Vital Signs Pulse 75 06/30/24 12:02 BP 134/78 06/30/24 12:02 Pulse Ox 96 06/30/24 12:02 Oxygen Delivery Method Room Air 06/30/24 12:02 BMI result Body Mass Index 43.0 Tobacco/Smoking Status: Tobacco use Status Tobacco use date assessed 06/30/24 06/30/24 12:05 Patient Tobacco Use Status Never used Tobacco 06/30/24 12:05 e-Cigarette/Vaping Use Never Used 06/30/24 12:05 PHQ-9: PHQ-9 Score PHQ-9: Total score 0 06/30/24 12:05 Depression Screening Interpretation: Negative Thrive Assessment: Date of Thrive Assessment Date Thrive assessed 06/30/24 06/30/24 12:05 Currently or been in a relationship where the following occur: No concerns reported Const General: cooperative, comfortable and no acute distress Orientation/consciousness: patient oriented x3 HENMT Head: Yes normocephalic Eyes General: appearance normal, both eyes and all related structures Neck Neck: Yes supple Resp Effort & Inspection: normal respiratory effort, no cough and no stridor Cardio Rhythm: regular rhythm Heart sounds: S1 normal heart sound present and S2 normal heart sound present GI Other: Abdomen is soft, nontender, bowel sounds positive Skin General skin exam: turgor normal Neuro General: patient oriented x3, tone normal and moves all extremities Extrem Right lower extremity: no edema Left lower extremity: no edema Assessment and Plan Assessment & Plan (1) Rectal incontinence: Code(s): R15.9 - Full incontinence of feces Qualifiers: Fecal incontinence type: full incontinence of feces Qualified Code(s): R15.9 - Full incontinence of feces (2) Irritable bowel syndrome: Code(s): K58.9 - Irritable bowel syndrome without diarrhea Qualifiers: Irritable bowel syndrome type: with both diarrhea and constipation Qualified Code(s): K58.2 - Mixed irritable bowel syndrome Plan 59-year-old female came in today to talk about rectal incontinence Patient says that it has had happened before but not to an extent that she had recently Patient says that few days ago it has happened but at that time she was having a stomach bug so she did not think too much of it But then the other day she got up from bed in the morning and she had incontinence and at that time she was not feeling sick in her stomach She does have history of IBS diarrhea predominant alternate with constipation She is taking no laxatives Patient says that when it happened initially she started taking probiotic and it that did help She had colonoscopy 9 years ago and that was within normal limit She is almost due for colonoscopy as well There is no blood in stool is no nausea vomiting no abdominal pain there is no fever I am treating her with dicyclomine to be taken 20 minutes before meal I have also placed referral for her to be evaluated by colorectal surgeon. Orders: Referrals Colon & Rectal Referral R15.9 - Full incontinence of feces Coding Level of Care Code Est Pt Level 4 (03241) Diagnoses Full incontinence of feces R15.9 Fecal incontinence type: full incontinence of feces Irritable bowel syndrome with both constipation and diarrhea K58.2 Irritable bowel syndrome type: with both diarrhea and constipation Additional Codes KE-7 Assessment Billing - KE-7 Assessment Tool: KE-7 Assessment 36063 ([id number])
[2024-06-30 12:02] VITALS: BP 134/78; PULSE 75; O2SAT 96; BMI 43.0
== END 2024-06-30 12:22 | disposition home or self-care (01) ==
PROVIDERS: PCP Internal Medicine; Visit Provider Internal Medicine
DX: R15.9 Full incontinence of feces (principal); K58.2 Mixed irritable bowel syndrome
CPT/HCPCS: 99214

== ENCOUNTER 2024-07-31 10:48 | Outpatient (AMB) | payer BC, SELFPAY ==
--- NOTE | 2024-07-31 10:59 | A.OFFVIS_ITS ---
Vital Signs 07/31/24 11:05 Height 5 ft 3 in Weight 243 lb 13.3 oz BMI 43.2 Pulse 72 Intake Visit Reasons: Full incontinence of feces Intake Note: Patient is seen in office for follow up visit, following full incontinence of feces. 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: No Accompanied by: Self / Same As Patient Allergies doxycycline Allergy (Mild, Verified 06/30/24 12:02) Swelling latex Allergy (Mild, Verified 06/30/24 12:02) Itching levofloxacin [From Levaquin] Adverse Reaction (Mild, Verified 06/30/24 12:02) Swelling metronidazole [From Flagyl] Adverse Reaction (Mild, Verified 06/30/24 12:02) Swelling Medication List - Last Reconciled 07/31/24 by Bharath Thorpe MD escitalopram oxalate 20 mg PO DAILY esomeprazole magnesium (Nexium 24HR) 20 mg PO DAILY hydrochlorothiazide 25 mg PO DAILY metoprolol tartrate 25 mg PO BID 90 days naproxen 500 mg PO BID simvastatin 20 mg PO DAILY 90 days HPI HPI Full incontinence of feces: Details: [age] year old female referred for ?incontinence?. She says that sometime in 04/10/2024 and in May,, she had episodes of what she describes as leakage of stool. She says that at that time, she had very watery stools. She says that in May, she had a little bit of a ?viral infection?. She says that this happened only on those 2 days. She has not had any recurrence since that time. She denies any bleeding. She has a history of vaginal x2 and she says she never had an episiotomy. She has had no surgeries on her anus. She had a colonoscopy at age of 50 and she says this was unremarkable. She also admits that she usually about 3-4 bowel movements a day. She says that this normally formed. [facility] Family History Mother Hypertension Obesity Lymphedema Brain tumor (benign) Father Hypertension Family/Other Family history of prostate cancer Family history of breast cancer Social History Housing: House Patient Tobacco Use Status: Never used Tobacco e-Cigarette/Vaping Use: Never Used Second Hand Smoke Exposure: No service: No Current occupational status: employed Cognitive needs: No Hearing needs: No Vision needs: Yes Review of Systems Const Denies chills and Denies fever(s) Card Denies chest pain, Denies dyspnea and Denies dyspnea on exertion Resp Denies cough, Denies dyspnea and Denies dyspnea on exertion GI Denies hematochezia and Denies change in bowel habits Denies hematuria Musc Denies back pain and Denies limited range of motion Neuro Denies focal weakness and Denies convulsions Psych Denies depression and Denies mood swings Physical Exam Vital Signs: Last Vital Signs Pulse 72 07/31/24 11:05 BMI result Body Mass Index 43.2 Const Other: Morbidly obese General: comfortable and no acute distress Orientation/consciousness: patient oriented x3 Neck Neck: Yes no lymphadenopathy Resp Auscultation: clear to auscultation bilaterally Cardio Rhythm: regular rhythm GI Other: Rectal exam shows no perianal lesions Palpation (GI): Soft to palpation, nontender and no guarding Neuro General: patient oriented x3 Office Procedures Anoscopy She was in giulia-knife position. The anoscope was gently inserted. A full examination of the anal canal was done. She did not have any anal canal lesions. There were small hemorrhoids, internal external. There was no fissure or induration. There was no bleeding She had good squeeze and resting pressures on digital exam as well of the sphincters. There was no palpable anal canal sphincter defect [id number] Assessment & Plan Assessment & Plan (1) Rectal incontinence: Code(s): R15.9 - Full incontinence of feces Category: Medical Qualifiers: Fecal incontinence type: full incontinence of feces Qualified Code(s): R15.9 - Full incontinence of feces Plan: She had 2 episodes of what she describes as leakage of stools in March and in May. He has had no recurrence since then She says she had watery stools at that time and she describes as ?diarrhea?. I do not feel any sphincter defect. She has good squeeze and resting pressures. Her incontinence may have been related to the school consistency at that time. She does not require any surgical intervention I did advise her on taking fiber supplements with Metamucil as well. She can follow up on a p.r.n. basis. Coding Level of Care Code New Pt Level 3 (69081) Diagnoses Full incontinence of feces R15.9 Fecal incontinence type: full incontinence of feces CPT Codes Details - CPT: 07885-[id number] ([id number])
[2024-07-31 11:05] VITALS: PULSE 72; BMI 43.2
== END 2024-07-31 11:36 | disposition home or self-care (01) ==
PROVIDERS: PCP Internal Medicine; Visit Provider Surgery
DX: R15.9 Full incontinence of feces (principal)
CPT/HCPCS: 46600; 99203

== ENCOUNTER → 2024-07-31 10:48 | Outpatient (BNVA) | payer BC, SELFPAY | PROVIDERS: PCP Internal Medicine; Visit Provider Surgery | DX: R15.9 Full incontinence of feces (principal); K64.8 Other hemorrhoids; K64.4 Residual hemorrhoidal skin tags | CPT/HCPCS: 46600 ==

== ENCOUNTER 2024-11-09 11:51 | Outpatient (AMB) | payer BC, SELFPAY ==
--- NOTE | 2024-11-09 13:14 | MHC.OFFWIV ---
Intake Vital Signs 11/09/24 13:15 Height 5 ft 3 in Weight 245 lb BMI 43.4 BP 110/78 Blood Pressure Location Lt brachial Position Sitting Pulse 74 Pulse Source Pulse Oximeter Pulse Oximetry (%) 100 Oxygen Delivery Method Room Air Intake Visit Reasons: EP-pins & needle feeling whole body Intake Note: Patient here for pins and needles throughout whole body for the past week, comes and goes but even her lips get the sensation as well. Patient Tobacco Use Status: Never used Tobacco Allergies doxycycline Allergy (Mild, Verified 11/09/24 13:16) Swelling latex Allergy (Mild, Verified 11/09/24 13:16) Itching levofloxacin [From Levaquin] Adverse Reaction (Mild, Verified 11/09/24 13:16) Swelling metronidazole [From Flagyl] Adverse Reaction (Mild, Verified 11/09/24 13:16) Swelling Do you need a note to return to daycare/school/sports/work: No HPI HPI Comments History of Present Illness Details History of Present Illness The patient is a 59-year-old female presenting with concerns of paresthesias that come and go with no provocation, in different parts of her body, including her arms and legs. She reports experiencing a diffuse sensation similar to an allergic reaction affecting her entire body, for approximately 2 week. She describes the sensation as constant but slightly subsiding at times. Prior to these symptoms, she experienced a sharp, unexplained pain in her tongue on two occasions over the past two weeks. She reports no associated symptoms such as loss of strength, sensation deficits, tingling or tickling in the throat, swallowing difficulties, or swelling of the lips or tongue. She notes feeling out of breath more easily but denies severe breathing difficulty. She initially used Benadryl, suspecting an allergic etiology, but observed no improvement, leading her to dismiss allergy as a cause. Her attempts to address the symptoms include increasing daily intake of a multivitamin, suspecting a possible vitamin deficiency. The patient inquires about the possibility of diabetes, given her parents' recent diagnoses. She reports nocturnal polyuria but denies polydipsia, polyphagia, or persistent dizziness. She missed her last medical follow-up due to an urgent ophthalmology appointment and is scheduled to see Dr. Bong robledo. Physical Exam General: Cooperative, healthy appearing, comfortable, no acute distress and well developed Orientation: Patient oriented x3 Limitations: No limitations Head: Normal to inspection Ears: Hearing grossly normal bilaterally Nose: Normal external nose present Face and sinus: Normal facial exam Eyes: Appearance normal, both eyes and all related structures Neck: Normal visual inspection and Yes full ROM Respiratory: Normal respiratory effort and able to speak in complete sentences. Skin: No rashes or lesions noted Neuro: Patient oriented x3, cranial nerves intact Extremities: Normal to inspection, sensation in tact in bilateral UE and LE. 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 PFSH Family History Mother Hypertension Obesity Lymphedema Brain tumor (benign) Father Hypertension Family/Other Family history of prostate cancer Family history of breast cancer Social History Housing: House Patient Tobacco Use Status: Never used Tobacco e-Cigarette/Vaping Use: Never Used Second Hand Smoke Exposure: No service: No Current occupational status: employed Cognitive needs: No Hearing needs: No Vision needs: Yes Review of Systems Const All systems reviewed & are unremarkable except as noted in HPI and below Physical Exam Vital Signs: Last Vital Signs Pulse 74 11/09/24 13:15 BP 110/78 11/09/24 13:15 Pulse Ox 100 11/09/24 13:15 Oxygen Delivery Method Room Air 11/09/24 13:15 BMI result Body Mass Index 43.4 Assessment & Plan Assessment & Plan (1) Complaint of paresthesia: Code(s): R20.2 - Paresthesia of skin Plan: Plan - Conduct laboratory investigations to assess electrolyte levels and vitamin D status. - Evaluate fasting glucose level as a screening measure for diabetes mellitus. Random POC in office is 96. - Encourage the patient to consistently take a daily multivitamin to address potential nutrient deficiencies. - Scheduled follow-up appointment on November [address] Woody for further evaluation. - Advise the patient to seek emergency care if any acute changes, such as facial droop or significant worsening of symptoms, occur. Patient was informed and verbally consented to the use of an ambient scribe for clinic note documentation during this visit. Orders: Orders AMB Random Glucose (hemocue) Today Z13.9 - Encounter for screening, unspecified Coding Level of Care Code Est Pt Level 4 (49387) Diagnoses Complaint of paresthesia R20.2
[2024-11-09 13:15] VITALS: BP 110/78; PULSE 74; O2SAT 100; BMI 43.4
== END 2024-11-09 13:51 | disposition home or self-care (01) ==
PROVIDERS: PCP Internal Medicine; Visit Provider Physician Assistant
DX: R20.2 Paresthesia of skin (principal); Z13.9 Encounter for screening, unspecified

== ENCOUNTER → 2024-11-09 11:51 | Outpatient (BNVA) | payer BC, SELFPAY | PROVIDERS: PCP Internal Medicine; Visit Provider Physician Assistant | DX: R20.2 Paresthesia of skin (principal) | CPT/HCPCS: 82948 ==

== ENCOUNTER 2024-11-29 13:00 | Outpatient (AMB) | payer BC, SELFPAY ==
[2024-11-29 13:04] VITALS: BP 118/78; PULSE 71; O2SAT 98; BMI 43.1
--- NOTE | 2024-11-29 13:04 | MHC.PC.OV ---
Vital Signs 11/29/24 13:04 Height 5 ft 3 in Weight 243 lb 6 oz BMI 43.1 BP 118/78 Blood Pressure Location Rt brachial Position Sitting Pulse 71 Pulse Source Pulse Oximeter Pulse Oximetry (%) 98 Oxygen Delivery Method Room Air Intake Visit Reasons: Walk In 11/09 Allergies doxycycline Allergy (Mild, Verified 11/29/24 13:11) Swelling latex Allergy (Mild, Verified 11/29/24 13:11) Itching levofloxacin [From Levaquin] Adverse Reaction (Mild, Verified 11/29/24 13:11) Swelling metronidazole [From Flagyl] Adverse Reaction (Mild, Verified 11/29/24 13:11) Swelling Medication List - Last Reconciled 11/29/24 by Javon Woody MD escitalopram oxalate 20 mg PO DAILY esomeprazole magnesium (Nexium 24HR) 20 mg PO DAILY hydrochlorothiazide 25 mg PO DAILY metoprolol tartrate 25 mg PO BID 90 days naproxen 500 mg PO BID psyllium seed (sugar) (Metamucil (sugar) oral powder) 1 tbsp PO DAILY simvastatin 20 mg PO DAILY 90 days Tobacco use date assessed: 11/29/24 Dental Screening Dental Screen Date: 11/29/24 Did you have a dental visit in the last 12 months?: Yes Did you have a dental problem in the last 6 months where you did not have access to dental care?: No Was dental information given to patient?: Patient has dentist HPI Walk In 11/09 HPI Details History of Present Illness - The patient is a 59-year-old female presenting with tingling sensations throughout the body. - Symptoms began a week prior and affected both arms and legs. - Initial misdiagnosis as an allergy by the patient, with no response to Benadryl. - Patient began taking Centrum 50 multivitamin, reducing symptom intensity. - Reports frequent heart fluttering. - Experiences fluttering as heart palpitations, unrelated to anxiety. - Known prediabetic status as per last year's lab results. Problem List - Tingling due to suspected Vitamin B12 deficiency - Prediabetes - Heart palpitations - hypertension -GERD -lipid disorder -morbid obesity Medications - Centrum 50: Taken for tingling sensations possibly related to vitamin deficiency. Review of Systems - Neurological: Reports tingling sensations throughout the body. - Cardiovascular: Reports frequent heart palpitations. - Psychiatric: Reports mild anxiety symptoms associated with palpitations. General: No fever no chills neurological: No headaches no dizziness ear nose throat: No sore throat no hearing difficulty no ear pain cardiovascular: No syncope, no chest pain, gastrointestinal: No nausea vomiting or diarrhea endocrine: No polyuria polydipsia no heat intolerance genitourinary: No dysuria skin: No new complaints Physical Exam general: No acute distress HEENT: No acute findings neck: Supple respiratory system: Able to talk in full sentences, no audible wheeze no stridor cardiovascular: S1-S2, reports fluttering sensations, heart rate is regular to auscultation gastrointestinal: No pain extremities: Tingling reported in lower and upper extremities 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 - Undergo fasting labs to evaluate for Vitamin B12 deficiency and pernicious anemia. - EKG to be conducted for assessment of heart palpitations. - If palpitations persist or increase, a heart monitor may be necessary for further evaluation. EKG done today showed: Normal sinus rhythm 72 beats per minute, no acute ST T findings, RR pattern in V2 Holter monitor order for 3 days to further evaluate Follow-up 2 weeks PFSH Family History Mother Hypertension Obesity Lymphedema Brain tumor (benign) Father Hypertension Family/Other Family history of prostate cancer Family history of breast cancer Social History Housing: House Patient Tobacco Use Status: Never used Tobacco e-Cigarette/Vaping Use: Never Used Second Hand Smoke Exposure: No service: No Current occupational status: employed Cognitive needs: No Hearing needs: No Vision needs: Yes Questionnaire PHQ-9 Over the last 2 weeks, how often have you been bothered by any of the following problems? 1. Little interest or pleasure in doing things: not at all 2. Feeling down, depressed, or hopeless: not at all 3. Trouble falling or staying asleep, or sleeping too much: not at all 4. Feeling tired or having little energy: not at all 5. Poor appetite or overeating: not at all 6. Feeling bad about yourself - or that you are a failure or have let yourself or your family down: not at all 7. Trouble concentrating on things, such as reading the newspaper or watching television: not at all 8. Moving or speaking so slowly that other people could have noticed. Or the opposite - being so fidgety or restless that you have been moving around a lot more than usual: not at all 9. Thoughts that you would be better off or of hurting yourself in some way: not at all Total score: 0 Depression Screening Interpretation: Negative Depression Screening Done: Yes 55874 - PHQ-9 Billing: Yes Source: Developed by Drs. Errol Carrillo, Gabriela Bull, Mateo Jeter and colleagues, with an educational bhanu from [employer]. Thrive Questionnaire Date Thrive assessed: 11/29/24 I am a: Patient What is your living situation today?: I have a steady place to live Within the past 12 months, did the food you bought not last and you didn't have the money to get more?: Never true Within the past 12 months, did you worry whether your food would run out before you got money to buy more?: Never true Do you have trouble paying for medicines?: No Do you have trouble getting transportation to medical appointments?: No Do you have trouble paying your heating and electricity bill?: No Do you have trouble taking care of your child, family member or friend?: No Do you have trouble with day-to-day activities such as bathing, preparing meals, shopping, managing finances, etc.?: No Are you currently unemployed and looking for a job?: No Are you interested in more education?: No Please select the resources that you would like help with: None Currently or been in a relationship where the following occur: No concerns reported THRIVE Score: 0 AUDIT C Alcohol Use Questionnaire (AUDIT-C) 1. How often do you have a drink containing alcohol?: Monthly or less 2. How many drinks containing alcohol do you have on a typical day when you are drinking?: 1 or 2 3. How often do you have six or more drinks on one occasion?: Never Total Score: 1 Score Reviewed/Action Taken: Yes KE-7 AMB Questionnaire KE-7 Date KE - 7 assessed: 11/29/24 Feeling nervous, anxious, or on edge: 0 = Not at all Not being able to stop or control worryin = Not at all Worrying too much about different things: 0 = Not at all Trouble relaxin = Not at all Being so restless that it is hard to sit still: 0 = Not at all Becoming easily annoyed or irritable: 0 = Not at all Feeling afraid as if something awful might happen: 0 = Not at all Total KE-7 score (0-4 normal; 5-9 mild; 10-14 moderate; 15-21 severe): 0 Source: Developed by Drs. Errol Carrillo, Gabriela Bull, Mateo Jeter and colleagues, with an educational bhanu from [employer]. KE-7 Assessment Billing KE-7 Assessment Tool: KE-7 Assessment 50098 Physical exam (Primary Care) Vital Signs: Last Vital Signs Pulse 71 11/29/24 13:04 BP 118/78 11/29/24 13:04 Pulse Ox 98 11/29/24 13:04 Oxygen Delivery Method Room Air 11/29/24 13:04 BMI result Body Mass Index 43.1 Tobacco/Smoking Status: Tobacco use Status Tobacco use date assessed 11/29/24 11/29/24 13:11 Patient Tobacco Use Status Never used Tobacco 11/29/24 13:05 e-Cigarette/Vaping Use Never Used 11/29/24 13:05 PHQ-9: PHQ-9 Score PHQ-9: Total score 0 11/29/24 13:29 Depression Screening Interpretation: Negative Thrive Assessment: Date of Thrive Assessment Date Thrive assessed 11/29/24 11/29/24 13:11 Currently or been in a relationship where the following occur: No concerns reported Office Procedures EKG [id number], Complete Coding Level of Care Code Est Pt Level 5 (55021) Diagnoses Paresthesia R20.2 Fluttering heart I49.8 Hypertension, essential I10 Impaired fasting blood sugar R73.01 Lipid disorder E78.9 Morbid obesity due to excess calories E66.01 CPT Codes EKG - CPT: 80448-[id number], Complete ([id number]) Additional Codes KE-7 Assessment Billing - KE-7 Assessment Tool: KE-7 Assessment 90777 ([id number]) PHQ-9 - 46671 - PHQ-9 Billing: Yes ([id number]) Assessment & Plan Assessment & Plan (1) Paresthesia: Code(s): R20.2 - Paresthesia of skin Category: Medical (2) Fluttering heart: Code(s): I49.8 - Other specified cardiac arrhythmias Category: Medical (3) Hypertension, essential: Code(s): I10 - Essential (primary) hypertension Category: Medical (4) Impaired fasting blood sugar: Code(s): R73.01 - Impaired fasting glucose Category: Medical (5) Lipid disorder: Code(s): E78.9 - Disorder of lipoprotein metabolism, unspecified Category: Medical (6) Morbid obesity due to excess calories: Comment: If your BMI is between 25 and 29.9, you are overweight. If your BMI is 30 or greater, you are obese. ___ Being obese is a problem, because it increases the risks of many different health problems. It can also make it hard for you to move, breathe, and do other things that people who are at a healthy weight can do easily. Plus, being obese can be hard emotionally. ___ What are the health risks of being obese? Being obese increases a persons risk of developing many health problems. Here are just a few examples: __ Diabetes High blood pressure, High cholesterol, Heart disease (including heart attacks) Stroke, Sleep apnea (a disorder in which you stop breathing for short periods while asleep) Asthma, Cancer __ Does being obese shorten a persons life? Yes. Studies show that people who are obese younger than people who are a healthy weight. They also show that the risk of goes up the heavier a person is. The degree of increased risk depends on how long the person has been obese, and on what other medical problems he or she has. , Reduce your carbohydrate intake and choose carbs that are complex. Remember as a general rule of thumb, avoid highly processed foods. If it's white and soft, it's probably been stripped of its nutritional value. Change white bread to whole wheat bread, white rice to brown rice, white potatoes to sweet potatoes, white pasta to whole wheat pasta. Monitor portion sizes too: protein should be no bigger than your fist. Limit your red meat intake to only once or twice a wk. Eat more white meat but make sure to avoid creamy sauces etc. Broiling, baking or grilling is best. Increase dark, green leafy vegetables and fruits. Code(s): E66.01 - Morbid (severe) obesity due to excess calories Category: Medical Plan History of Present Illness - The patient is a 59-year-old female presenting with tingling sensations throughout the body. - Symptoms began a week prior and affected both arms and legs. - Initial misdiagnosis as an allergy by the patient, with no response to Benadryl. - Patient began taking Centrum 50 multivitamin, reducing symptom intensity. - Reports frequent heart fluttering. - Experiences fluttering as heart palpitations, unrelated to anxiety. - Known prediabetic status as per last year's lab results. Problem List - Tingling due to suspected Vitamin B12 deficiency - Prediabetes - Heart palpitations - hypertension -GERD -lipid disorder -morbid obesity Medications - Centrum 50: Taken for tingling sensations possibly related to vitamin deficiency. Review of Systems - Neurological: Reports tingling sensations throughout the body. - Cardiovascular: Reports frequent heart palpitations. - Psychiatric: Reports mild anxiety symptoms associated with palpitations. General: No fever no chills neurological: No headaches no dizziness ear nose throat: No sore throat no hearing difficulty no ear pain cardiovascular: No syncope, no chest pain, gastrointestinal: No nausea vomiting or diarrhea endocrine: No polyuria polydipsia no heat intolerance genitourinary: No dysuria skin: No new complaints Physical Exam general: No acute distress HEENT: No acute findings neck: Supple respiratory system: Able to talk in full sentences, no audible wheeze no stridor cardiovascular: S1-S2, reports fluttering sensations, heart rate is regular to auscultation gastrointestinal: No pain extremities: Tingling reported in lower and upper extremities 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 - Undergo fasting labs to evaluate for Vitamin B12 deficiency and pernicious anemia. - EKG to be conducted for assessment of heart palpitations. - If palpitations persist or increase, a heart monitor may be necessary for further evaluation. EKG done today showed: Normal sinus rhythm 72 beats per minute, no acute ST T findings, RR pattern in V2 Holter monitor order for 3 days to further evaluate Follow-up 2 weeks 45 minutes spent in care of this patient Orders: Orders ECG 3 day holter monitor Today I49.8 - Other specified cardiac arrhythmias
== END 2024-11-29 13:39 | disposition home or self-care (01) ==
PROVIDERS: PCP Internal Medicine; Visit Provider Internal Medicine
DX: R20.2 Paresthesia of skin (principal); E66.01 Morbid (severe) obesity due to excess calories; Z68.41 Body mass index [BMI] 40.0-44.9, adult; I49.8 Other specified cardiac arrhythmias; I10 Essential (primary) hypertension; R73.01 Impaired fasting glucose; E78.9 Disorder of lipoprotein metabolism, unspecified

== ENCOUNTER → 2024-11-29 13:00 | Outpatient (BNVA) | payer BC, SELFPAY | PROVIDERS: PCP Internal Medicine; Visit Provider Internal Medicine | DX: R20.2 Paresthesia of skin (principal); I49.8 Other specified cardiac arrhythmias; I10 Essential (primary) hypertension; R73.01 Impaired fasting glucose; E78.9 Disorder of lipoprotein metabolism, unspecified; E66.01 Morbid (severe) obesity due to excess calories; Z68.43 Body mass index [BMI] 50.0-59.9, adult | CPT/HCPCS: 93005; 96127 ==

== ENCOUNTER 2024-11-30 08:43 | Outpatient (REF) | payer BC, SELFPAY ==
[2024-11-30 10:13] LABS: MANUAL DIFF FLAG NO
[2024-11-30 10:20] LABS: Basophils Percent Auto 0.4 % (0-2); Eosinophils Absolute Auto 0.2 X10*3/uL (0.0-0.4); Eosinophils Percent Auto 2.6 % (0-4); Hematocrit 38.3 % (37.0-47.0); Hemoglobin 13.2 g/dl (12.0-16.0); Imm Gran Abs Auto 0.02 X10*3/uL (0.00-0.03); Imm Gran Pct Auto 0.3 % (0.0-0.4); Lymphocytes Absolute Auto 2.3 X10*3/uL (1.2-4.9); Lymphocytes Percent Auto 30.9 % (20-40); Mean Corpuscular HGB Conc 34.5 g/dl (31.0-35.0); Mean Corpuscular Hemoglobin 26.7 pg (27.0-33.0); Mean Corpuscular Volume 77.4 fL (80.0-98.0); Mean Platelet Volume 11.3 fL (9.4-12.3); Monocytes Absolute Auto 0.6 X10*3/uL (0.1-1.2); Monocytes Percent Auto 8.2 % (2-11); Neutrophils Absolute Auto 4.2 x10*3/uL (2.0-8.3); Neutrophils Percent Auto 57.6 % (45-73); Platelet Count 274 X10*3/uL (160-400); Red Blood Count 4.95 X10*6/uL (4.20-5.50); Red Cell Distribution Width 14.5 % (11.0-16.0); White Blood Count 7.3 X10*3/uL (4.8-10.8)
[2024-11-30 10:43] LABS: Alanine Aminotransferase 21 U/L (0-31); Albumin Level 3.8 g/dL (3.5-5.0); Anion Gap 10 (12-20); Aspartate Amino Transferase 29 U/L (5-31); Bilirubin Total 0.4 mg/dL (0.0-1.0); Blood Urea Nitrogen 19 mg/dL (9-16); Calcium 9.7 mg/dL (8.4-10.2); Carbon Dioxide 33 mmol/L (22-29); Chloride 102 mmol/L (96-108); Cholesterol 123 mg/dL (<200); Estimated Glomerular Filt Rate > 60; Glucose Fasting 113 mg/dL (60-99); HDL Cholesterol 35 mg/dL (>40); LDL Cholesterol Calculated 66 mg/dL (<100); Potassium 3.5 mmol/L (3.3-5.1); Sodium 141 mmol/L (135-145); Triglycerides 111 mg/dL (<150)
[2024-11-30 11:08] LABS: Vitamin B12 604 pg/mL (200-900)
[2024-11-30 12:26] LABS: Alkaline Phosphatase 73 U/L (39-117)
[2024-12-05 23:58] LABS: Parietal Cell Antibody 62.2 Unit (<=20.0)
== END 2024-11-30 08:44 | disposition home or self-care (01) ==
LOC: HO.HMGCLDS 08:43
PROVIDERS: PCP Internal Medicine; Visit Provider Internal Medicine
DX: I10 Essential (primary) hypertension (principal); R73.01 Impaired fasting glucose; E78.9 Disorder of lipoprotein metabolism, unspecified; F41.1 Generalized anxiety disorder
CPT/HCPCS: 36415; 80053; 80061; 82607; 83516; 85025

== ENCOUNTER 2024-12-13 11:55 | Outpatient (AMB) | payer BC, SELFPAY ==
[2024-12-13 11:56] VITALS: BP 118/78; PULSE 94; O2SAT 93; BMI 43.3
--- NOTE | 2024-12-13 11:56 | MHC.PC.OV ---
Vital Signs 12/13/24 11:56 Height 5 ft 3 in Weight 244 lb 8 oz BMI 43.3 BP 118/78 Blood Pressure Location Rt brachial Position Sitting Pulse 94 Pulse Source Pulse Oximeter Pulse Oximetry (%) 93 Oxygen Delivery Method Room Air Intake Visit Reasons: 2 week follow up Allergies doxycycline Allergy (Mild, Verified 12/13/24 11:56) Swelling latex Allergy (Mild, Verified 12/13/24 11:56) Itching levofloxacin [From Levaquin] Adverse Reaction (Mild, Verified 12/13/24 11:56) Swelling metronidazole [From Flagyl] Adverse Reaction (Mild, Verified 12/13/24 11:56) Swelling Medication List - Last Reconciled 12/13/24 by Javon Woody MD escitalopram oxalate 20 mg PO DAILY esomeprazole magnesium (Nexium 24HR) 20 mg PO DAILY hydrochlorothiazide 25 mg PO DAILY metoprolol tartrate 25 mg PO BID 90 days naproxen 500 mg PO BID psyllium seed (sugar) (Metamucil (sugar) oral powder) 1 tbsp PO DAILY simvastatin 20 mg PO DAILY 90 days Tobacco use date assessed: 12/13/24 Dental Screening Dental Screen Date: 12/13/24 Did you have a dental visit in the last 12 months?: Yes Did you have a dental problem in the last 6 months where you did not have access to dental care?: No Was dental information given to patient?: Patient has dentist HPI 2 week follow up HPI Details - The patient is a 59-year-old female presenting with concerns about tingling sensation. - Tingling sensation present, noted to have decreased in intensity. - Recent labs indicate normal hemoglobin level at 13.2 and vitamin B12 level at 604. - Presence of parietal cell antibodies noted, initially leading to concern about anemia. - Current management with vitamin B12 supplement considered appropriate. - Additional factors addressed include follow-up on cardiovascular health. - Blood pressure recorded at 118/78. - Scheduled for a Holter monitor to assess any palpitations or arrhythmias. - Appointment with a poker prop player is scheduled after Holter monitoring. Problem List - Pernicious Anemia - Essential Hypertension - Hyperglycemia - Parietal Cell Antibody Presence Patient Instructions - Continue taking vitamin B12 supplements as prescribed. - Monitor blood pressure at home and maintain a log for review at the next appointment. - Bring the blood pressure log to the next visit. - Follow-up appointment with poker prop player is scheduled; attend as advised. - Use the Holter monitor as instructed and await contact for any further instructions. - Return to the clinic for a follow-up visit in February. Review of Systems - Neurological: Reports tingling sensation; denies frequent lightheadedness. - General: No fever no chills - Neurological: No headaches no dizziness - Ear nose throat: No sore throat no hearing difficulty no ear pain - Cardiovascular: No syncope, no chest pain, no palpitations - Gastrointestinal: No nausea vomiting or diarrhea - Endocrine: No polyuria polydipsia no heat intolerance - Genitourinary: No dysuria , no blood in urine Physical Exam - General: No acute distress - HEENT: No acute findings - Neck: Supple - Respiratory system: Able to talk in full sentences, no audible wheeze - cardiovascular: S1-S2 regular in rate and rhythm - Gastrointestinal: No pain - Extremities: No new findings - 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 awake oriented x3 motor sensory intact - Skin: Normal turgor PFSH Family History Mother Hypertension Obesity Lymphedema Brain tumor (benign) Father Hypertension Family/Other Family history of prostate cancer Family history of breast cancer Social History Housing: House Patient Tobacco Use Status: Never used Tobacco e-Cigarette/Vaping Use: Never Used Second Hand Smoke Exposure: No service: No Current occupational status: employed Cognitive needs: No Hearing needs: No Vision needs: Yes Questionnaire Thrive Questionnaire Date Thrive assessed: 11/29/24 AUDIT C Alcohol Use Questionnaire (AUDIT-C) 1. How often do you have a drink containing alcohol?: Monthly or less 2. How many drinks containing alcohol do you have on a typical day when you are drinking?: 1 or 2 3. How often do you have six or more drinks on one occasion?: Never Total Score: 1 Score Reviewed/Action Taken: Yes KE-7 AMB Questionnaire KE-7 Date KE - 7 assessed: 11/29/24 Source: Developed by Drs. Errol Carrillo, Gabriela Bull, Mateo Jeter and colleagues, with an educational bhaun from [employer]. Physical exam (Primary Care) Vital Signs: Last Vital Signs Pulse 94 12/13/24 11:56 BP 118/78 01/22/25 11:56 Pulse Ox 93 12/13/24 11:56 Oxygen Delivery Method Room Air 12/13/24 11:56 BMI result Body Mass Index 43.3 Tobacco/Smoking Status: Tobacco use Status Tobacco use date assessed 12/13/24 12/13/24 11:57 Patient Tobacco Use Status Never used Tobacco 12/13/24 11:57 e-Cigarette/Vaping Use Never Used 12/13/24 11:57 Thrive Assessment: Date of Thrive Assessment Date Thrive assessed 11/29/24 12/13/24 11:57 Coding Level of Care Code Est Pt Level 3 (87711) Diagnoses Fluttering heart I49.8 Hypertension, essential I10 Impaired fasting blood sugar R73.01 Lipid disorder E78.9 Pernicious anemia D51.0 Assessment & Plan Assessment & Plan (1) Fluttering heart: Code(s): I49.8 - Other specified cardiac arrhythmias Category: Medical (2) Hypertension, essential: Code(s): I10 - Essential (primary) hypertension Category: Medical (3) Impaired fasting blood sugar: Code(s): R73.01 - Impaired fasting glucose Category: Medical (4) Lipid disorder: Code(s): E78.9 - Disorder of lipoprotein metabolism, unspecified Category: Medical (5) Pernicious anemia: Code(s): D51.0 - Vitamin B12 deficiency anemia due to intrinsic factor deficiency Category: Medical Plan - The patient is a 59-year-old female presenting with concerns about tingling sensation. - Tingling sensation present, noted to have decreased in intensity. - Recent labs indicate normal hemoglobin level at 13.2 and vitamin B12 level at 604. - Presence of parietal cell antibodies noted, initially leading to concern about anemia. - Current management with vitamin B12 supplement considered appropriate. - Additional factors addressed include follow-up on cardiovascular health. - Blood pressure recorded at 118/78. - Scheduled for a Holter monitor to assess any palpitations or arrhythmias. - Appointment with a poker prop player is scheduled after Holter monitoring. Problem List - Pernicious Anemia - Essential Hypertension - Hyperglycemia - Parietal Cell Antibody Presence Patient Instructions - Continue taking vitamin B12 supplements as prescribed. - Monitor blood pressure at home and maintain a log for review at the next appointment. - Bring the blood pressure log to the next visit. - Follow-up appointment with poker prop player is scheduled; attend as advised. - Use the Holter monitor as instructed and await contact for any further instructions. - Return to the clinic for a follow-up visit in February. Follow-up in February Orders: Referrals Cardiology Referral I49.8 - Other specified cardiac arrhythmias
== END 2024-12-13 12:37 | disposition home or self-care (01) ==
PROVIDERS: PCP Internal Medicine; Visit Provider Internal Medicine
DX: I49.8 Other specified cardiac arrhythmias (principal); I10 Essential (primary) hypertension; R73.01 Impaired fasting glucose; E78.9 Disorder of lipoprotein metabolism, unspecified; D51.0 Vitamin B12 deficiency anemia due to intrinsic factor deficiency

== ENCOUNTER → 2024-12-18 13:08 | Outpatient (REF) | payer BC, SELFPAY | LOC: HO.CARD 13:08 | PROVIDERS: PCP Internal Medicine; Visit Provider Internal Medicine | DX: I49.8 Other specified cardiac arrhythmias (principal) | CPT/HCPCS: 93242 ==

== ENCOUNTER → 2024-12-18 13:12 | Outpatient (BNV) | payer BC, SELFPAY | PROVIDERS: PCP Internal Medicine; Visit Provider Internal Medicine Cardiovascular Disease | DX: I49.3 Ventricular premature depolarization (principal) | CPT/HCPCS: 93244 ==

== ENCOUNTER 2025-03-14 08:46 | Outpatient (AMB) | payer BC, SELFPAY ==
[2025-03-14 08:48] VITALS: BP 120/80; PULSE 75; O2SAT 98; BMI 43.4
--- NOTE | 2025-03-14 08:48 | A.OFFPC_ITS ---
Vital Signs 03/14/25 08:48 Height 5 ft 3 in Weight 245 lb 4 oz BMI 43.4 BP 120/80 Blood Pressure Location Rt brachial Position Sitting Pulse 75 Pulse Source Pulse Oximeter Pulse Oximetry (%) 98 Oxygen Delivery Method Room Air Intake Visit Reasons: 3m follow up Allergies doxycycline Allergy (Mild, Verified 03/14/25 08:48) Swelling latex Allergy (Mild, Verified 03/14/25 08:48) Itching levofloxacin [From Levaquin] Adverse Reaction (Mild, Verified 03/14/25 08:48) Swelling metronidazole [From Flagyl] Adverse Reaction (Mild, Verified 03/14/25 08:48) Swelling Medication List - Last Reconciled 03/14/25 by Javon Woody MD cyanocobalamin (vitamin B-12) 1,000 mcg IM .q month 30 days escitalopram oxalate 20 mg PO DAILY esomeprazole magnesium (Nexium 24HR) 20 mg PO DAILY hydrochlorothiazide 25 mg PO DAILY metoprolol tartrate 25 mg PO BID 90 days naproxen 500 mg PO BID psyllium seed (sugar) (Metamucil (sugar) oral powder) 1 tbsp PO DAILY simvastatin 20 mg PO DAILY 90 days syringe with needle ([employer] Luer Lock Syringe with needle) Use to inject vitamin B-12 once a month Tobacco use date assessed: 03/14/25 Dental Screening Dental Screen Date: 03/14/25 Did you have a dental visit in the last 12 months?: Yes Did you have a dental problem in the last 6 months where you did not have access to dental care?: No Was dental information given to patient?: Patient has dentist HPI 3m follow up HPI Details - Patient is a 59-year-old female. - Follow-up visit after last seen in Nov. - Continues current medication regimen: escitalopram 20 mg, Nexium, hydrochlorothiazide 25 mg, metoprolol 25 mg BID, naproxen, simvastatin 20 mg, and monthly B12 injections. - Denies anxiety or depression currently . - Reports occasional heart palpitations; no chest pain. - Php Architect appointment is scheduled for April 24. - Metabolic profile and kidney functions were normal in November; liver enzymes normal; cholesterol within normal limits. B12 level at 604. - Impaired fasting glucose noted; monito ring is suggested. - Patient mentions potential right carpa l tunnel syndrome, possibly exacerbated by computer use. - Discussed ergonomic positioning to all eviate carpal tunnel symptoms. - Engaging in some physical activity wit h plans for increased walking. - Recently completed Cologuard screening test. - History of pernicious anemia; continue s vitamin B12 supplementation. Problem List - Generalized Anxiety Disorder - Gastroesophageal Reflux Disease - Hyperlipidemia - Insufficient Vitamin B12 - Impaired Fasting Glucose - Right Carpal Tunnel Syndrome - Pernicious Anemia - Essential Hypertension - Hyperglycemia Patient Instructions - Adjust computer workstation to allevia te symptoms of carpal tunnel syndrome. Raise the computer monitor so that it is at eye level and ensure proper hand positioning while typing. - Consider using a wrist splint during s leep. - Continue current medications as prescr ibed. - Attend cardiology appointment on April 24. - Engage in regular physical activity, s uch as walking in [place]. - Labs to be repeated for monitoring blo od glucose, no fasting required unless specified. - Continue taking vitamin B12 supplement s as prescribed. - Monitor blood pressure at home and chuckie munguiain a log for review at the next appointment. Review of Systems - General: No fever no chills - Neurological: No headaches no dizziness - Ear nose throat: No sore throat no hearing difficulty no ear pain - Cardiovascular: No syncope, no chest pain, no palpitations - Gastrointestinal: No nausea vomiting or diarrhea - Endocrine: No polyuria polydipsia no heat intolerance - Genitourinary: No dysuria , no blood in urine Physical Exam - General- Well-appearing, no acute dist ress. 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: Alert awake oriented x3 motor se nsory intact - Skin: Normal turgor PFSH Family History Mother Hypertension Obesity Lymphedema Brain tumor (benign) Father Hypertension Family/Other Family history of prostate cancer Family history of breast cancer Social History Housing: House Patient Tobacco Use Status: Never used Tobacco e-Cigarette/Vaping Use: Never Used Second Hand Smoke Exposure: No service: No Current occupational status: employed Cognitive needs: No Hearing needs: No Vision needs: Yes Questionnaire PHQ-9 Over the last 2 weeks, how often have you been bothered by any of the following problems? 1. Little interest or pleasure in doing things: several days 2. Feeling down, depressed, or hopeless: not at all 3. Trouble falling or staying asleep, or sleeping too much: not at all 4. Feeling tired or having little energy: not at all 5. Poor appetite or overeating: not at all 6. Feeling bad about yourself - or that you are a failure or have let yourself or your family down: not at all 7. Trouble concentrating on things, such as reading the newspaper or watching television: not at all 8. Moving or speaking so slowly that other people could have noticed. Or the opposite - being so fidgety or restless that you have been moving around a lot more than usual: not at all 9. Thoughts that you would be better off or of hurting yourself in some way: not at all Total score: 1 Depression Screening Interpretation: Negative Depression Screening Done: Yes 53783 - PHQ-9 Billing: Yes Source: Developed by Drs. Errol Carrillo, Gabriela Bull, Mateo Jeter and colleagues, with an educational bhanu from [employer]. Thrive Questionnaire Date Thrive assessed: 03/14/25 I am a: Patient What is your living situation today?: I have a steady place to live Within the past 12 months, did the food you bought not last and you didn't have the money to get more?: Never true Within the past 12 months, did you worry whether your food would run out before you got money to buy more?: Never true Do you have trouble paying for medicines?: No Do you have trouble getting transportation to medical appointments?: No Do you have trouble paying your heating and electricity bill?: No Do you have trouble taking care of your child, family member or friend?: No Do you have trouble with day-to-day activities such as bathing, preparing meals, shopping, managing finances, etc.?: No Are you currently unemployed and looking for a job?: No Are you interested in more education?: No Please select the resources that you would like help with: None Currently or been in a relationship where the following occur: No concerns reported THRIVE Score: 0 AUDIT C Alcohol Use Questionnaire (AUDIT-C) 1. How often do you have a drink containing alcohol?: Monthly or less 2. How many drinks containing alcohol do you have on a typical day when you are drinking?: 1 or 2 3. How often do you have six or more drinks on one occasion?: Never Total Score: 1 Score Reviewed/Action Taken: Yes KE-7 AMB Questionnaire KE-7 Date KE - 7 assessed: 03/14/25 Feeling nervous, anxious, or on edge: 0 = Not at all Not being able to stop or control worryin = Not at all Worrying too much about different things: 0 = Not at all Trouble relaxin = Not at all Being so restless that it is hard to sit still: 0 = Not at all Becoming easily annoyed or irritable: 0 = Not at all Feeling afraid as if something awful might happen: 0 = Not at all Total KE-7 score (0-4 normal; 5-9 mild; 10-14 moderate; 15-21 severe): 0 Source: Developed by Drs. Errol Carrillo, Gabriela Bull, Mateo Jeter and colleagues, with an educational bhanu from [employer]. KE-7 Assessment Billing KE-7 Assessment Tool: KE-7 Assessment 76056 Physical exam (Primary Care) Vital Signs: Last Vital Signs Pulse 75 03/14/25 08:48 BP 120/80 03/14/25 08:48 Pulse Ox 98 03/14/25 08:48 Oxygen Delivery Method Room Air 03/14/25 08:48 BMI result Body Mass Index 43.4 Tobacco/Smoking Status: Tobacco use Status Tobacco use date assessed 03/14/25 03/14/25 08:55 Patient Tobacco Use Status Never used Tobacco 03/14/25 08:55 e-Cigarette/Vaping Use Never Used 03/14/25 08:55 PHQ-9: PHQ-9 Score PHQ-9: Total score 1 03/14/25 08:55 Depression Screening Interpretation: Negative Thrive Assessment: Date of Thrive Assessment Date Thrive assessed 03/14/25 03/14/25 08:55 Currently or been in a relationship where the following occur: No concerns reported Coding Level of Care Code Est Pt Level 4 (95300) Diagnoses Hypertension, essential I10 Pernicious anemia D51.0 Paresthesia R20.2 Anxiety, generalized F41.1 Lipid disorder E78.9 Impaired fasting blood sugar R73.01 Morbid obesity due to excess calories E66.01 Additional Codes KE-7 Assessment Billing - KE-7 Assessment Tool: KE-7 Assessment 65942 ([id number]) PHQ-9 - 34498 - PHQ-9 Billing: Yes ([id number]) Assessment & Plan Assessment & Plan (1) Hypertension, essential: Code(s): I10 - Essential (primary) hypertension Category: Medical (2) Pernicious anemia: Code(s): D51.0 - Vitamin B12 deficiency anemia due to intrinsic factor deficiency Category: Medical (3) Paresthesia: Code(s): R20.2 - Paresthesia of skin Category: Medical (4) Anxiety, generalized: Code(s): F41.1 - Generalized anxiety disorder Category: Medical (5) Lipid disorder: Code(s): E78.9 - Disorder of lipoprotein metabolism, unspecified Category: Medical (6) Impaired fasting blood sugar: Code(s): R73.01 - Impaired fasting glucose Category: Medical (7) Morbid obesity due to excess calories: Comment: If your BMI is between 25 and 29.9, you are overweight. If your BMI is 30 or greater, you are obese. ___ Being obese is a problem, because it increases the risks of many different health problems. It can also make it hard for you to move, breathe, and do other things that people who are at a healthy weight can do easily. Plus, being obese can be hard emotionally. ___ What are the health risks of being obese? Being obese increases a persons risk of developing many health problems. Here are just a few examples: __ Diabetes High blood pressure, High cholesterol, Heart disease (including heart attacks) Stroke, Sleep apnea (a disorder in which you stop breathing for short periods while asleep) Asthma, Cancer __ Does being obese shorten a persons life? Yes. Studies show that people who are obese younger than people who are a healthy weight. They also show that the risk of goes up the heavier a person is. The degree of increased risk depends on how long the person has been obese, and on what other medical problems he or she has. , Reduce your carbohydrate intake and choose carbs that are complex. Remember as a general rule of thumb, avoid highly processed foods. If it's white and soft, it's probably been stripped of its nutritional value. Change white bread to whole wheat bread, white rice to brown rice, white potatoes to sweet potatoes, white pasta to whole wheat pasta. Monitor portion sizes too: protein should be no bigger than your fist. Limit your red meat intake to only once or twice a wk. Eat more white meat but make sure to avoid creamy sauces etc. Broiling, baking or grilling is best. Increase dark, green leafy vegetables and fruits. Code(s): E66.01 - Morbid (severe) obesity due to excess calories Category: Medical Plan - Patient is a 59-year-old female. - Follow-up visit after last seen in November. - Continues current medication regimen: escitalopram 20 mg, Nexium, hydrochlorothiazide 25 mg, metoprolol 25 mg BID, naproxen, simvastatin 20 mg, and monthly B12 injections. - Denies anxiety or depression currently. - Reports occasional heart palpitations; no chest pain. - Php Architect appointment is scheduled for April 24. - Metabolic profile and kidney functions were normal in November; liver enzymes normal; cholesterol within normal limits. B12 level at 604. - Impaired fasting glucose noted; monitoring is suggested. - Patient mentions potential right carpal tunnel syndrome, possibly exacerbated by computer use. - Discussed ergonomic positioning to alleviate carpal tunnel symptoms. - Engaging in some physical activity with plans for increased walking. - Recently completed Cologuard screening test. - History of pernicious anemia; continues vitamin B12 supplementation. Problem List - Generalized Anxiety Disorder - Gastroesophageal Reflux Disease - Hyperlipidemia - Insufficient Vitamin B12 - Impaired Fasting Glucose - Right Carpal Tunnel Syndrome - Pernicious Anemia - Essential Hypertension - Hyperglycemia Patient Instructions - Adjust computer workstation to alleviate symptoms of carpal tunnel syndrome. Raise the computer monitor so that it is at eye level and ensure proper hand positioning while typing. - Consider using a wrist splint during sleep. - Continue current medications as prescribed. - Attend cardiology appointment on April 24. - Engage in regular physical activity, such as walking in [place]. - Labs to be repeated for monitoring blood glucose, no fasting required unless specified. - Continue taking vitamin B12 supplements as prescribed. - Monitor blood pressure at home and maintain a log for review at the next appointment. Orders: Orders Complete Blood Count Auto Diff Today D51.0 - Vitamin B12 deficiency anemia due to intrinsic factor deficiency, E66.01 - Morbid (severe) obesity due to excess calories, E78.9 - Disorder of lipoprotein metabolism, unspecified, F41.1 - Generalized anxiety disorder, I10 - Essential (primary) hypertension, R20.2 - Paresthesia of skin, R73.01 - Impaired fasting glucose TSH reflex Free T4 Today D51.0 - Vitamin B12 deficiency anemia due to intrinsic factor deficiency, E66.01 - Morbid (severe) obesity due to excess calories, E78.9 - Disorder of lipoprotein metabolism, unspecified, F41.1 - Generalized anxiety disorder, I10 - Essential (primary) hypertension, R20.2 - Paresthesia of skin, R73.01 - Impaired fasting glucose Vitamin B12 Today D51.0 - Vitamin B12 deficiency anemia due to intrinsic factor deficiency, E66.01 - Morbid (severe) obesity due to excess calories, E78.9 - Disorder of lipoprotein metabolism, unspecified, F41.1 - Generalized anxiety disorder, I10 - Essential (primary) hypertension, R20.2 - Paresthesia of skin, R73.01 - Impaired fasting glucose Hemoglobin A1c Today D51.0 - Vitamin B12 deficiency anemia due to intrinsic factor deficiency, E66.01 - Morbid (severe) obesity due to excess calories, E78.9 - Disorder of lipoprotein metabolism, unspecified, F41.1 - Generalized anxiety disorder, I10 - Essential (primary) hypertension, R20.2 - Paresthesia of skin, R73.01 - Impaired fasting glucose Comprehensive Met. Panel Today D51.0 - Vitamin B12 deficiency anemia due to intrinsic factor deficiency, E66.01 - Morbid (severe) obesity due to excess calories, E78.9 - Disorder of lipoprotein metabolism, unspecified, F41.1 - Generalized anxiety disorder, I10 - Essential (primary) hypertension, R20.2 - Paresthesia of skin, R73.01 - Impaired fasting glucose Vitamin D 25-OH (D2 and D3) Today D51.0 - Vitamin B12 deficiency anemia due to intrinsic factor deficiency, E66.01 - Morbid (severe) obesity due to excess calories, E78.9 - Disorder of lipoprotein metabolism, unspecified, F41.1 - Generalized anxiety disorder, I10 - Essential (primary) hypertension, R20.2 - Paresthesia of skin, R73.01 - Impaired fasting glucose Ferritin Today D51.0 - Vitamin B12 deficiency anemia due to intrinsic factor deficiency, E66.01 - Morbid (severe) obesity due to excess calories, E78.9 - Disorder of lipoprotein metabolism, unspecified, F41.1 - Generalized anxiety disorder, I10 - Essential (primary) hypertension, R20.2 - Paresthesia of skin, R73.01 - Impaired fasting glucose Folate Today D51.0 - Vitamin B12 deficiency anemia due to intrinsic factor deficiency, E66.01 - Morbid (severe) obesity due to excess calories, E78.9 - Disorder of lipoprotein metabolism, unspecified, F41.1 - Generalized anxiety disorder, I10 - Essential (primary) hypertension, R20.2 - Paresthesia of skin, R73.01 - Impaired fasting glucose
== END 2025-03-14 09:23 | disposition home or self-care (01) ==
LOC: HO.HMCC 08:47
PROVIDERS: PCP Internal Medicine; Visit Provider Internal Medicine
DX: I10 Essential (primary) hypertension (principal); D51.0 Vitamin B12 deficiency anemia due to intrinsic factor deficiency; E66.01 Morbid (severe) obesity due to excess calories; Z68.41 Body mass index [BMI] 40.0-44.9, adult; R20.2 Paresthesia of skin; F41.1 Generalized anxiety disorder; E78.9 Disorder of lipoprotein metabolism, unspecified; R73.01 Impaired fasting glucose

== ENCOUNTER 2025-03-14 08:46 | Outpatient (REF) | payer BC, SELFPAY ==
[2025-03-14 10:23] LABS: MANUAL DIFF FLAG NO
[2025-03-14 10:28] LABS: Basophils Percent Auto 0.3 % (0-2); Eosinophils Absolute Auto 0.2 X10*3/uL (0.0-0.4); Eosinophils Percent Auto 3.1 % (0-4); Hematocrit 37.5 % (37.0-47.0); Hemoglobin 13.3 g/dl (12.0-16.0); Imm Gran Abs Auto 0.01 X10*3/uL (0.00-0.03); Imm Gran Pct Auto 0.2 % (0.0-0.4); Lymphocytes Absolute Auto 1.9 X10*3/uL (1.2-4.9); Lymphocytes Percent Auto 31.3 % (20-40); Mean Corpuscular HGB Conc 35.5 g/dl (31.0-35.0); Mean Corpuscular Hemoglobin 27.3 pg (27.0-33.0); Monocytes Absolute Auto 0.5 X10*3/uL (0.1-1.2); Monocytes Percent Auto 7.6 % (2-11); Neutrophils Absolute Auto 3.5 x10*3/uL (2.0-8.3); Neutrophils Percent Auto 57.5 % (45-73); Platelet Count 270 X10*3/uL (160-400); Red Blood Count 4.87 X10*6/uL (4.20-5.50); Red Cell Distribution Width 14.6 % (11.0-16.0); White Blood Count 6.1 X10*3/uL (4.8-10.8)
[2025-03-14 11:03] LABS: Estimated Average Glucose 117 mg/dL; Hemoglobin A1C 136.3216 umol/L; Hemoglobin A1c % 5.7 % (<6.0); Total Hemoglobin (HGBA1C) 3507.2564 umol/L
[2025-03-14 11:34] LABS: Alanine Aminotransferase 20 U/L (0-31); Albumin Level 3.8 g/dL (3.5-5.0); Alkaline Phosphatase 70 U/L (39-117); Anion Gap 9 (12-20); Aspartate Amino Transferase 21 U/L (5-31); Bilirubin Total 0.4 mg/dL (0.0-1.0); Blood Urea Nitrogen 22 mg/dL (9-16); Carbon Dioxide 32 mmol/L (22-29); Chloride 104 mmol/L (96-108); Estimated Glomerular Filt Rate > 60; Glucose Random 93 mg/dL (60-115); Potassium 3.8 mmol/L (3.3-5.1); Sodium 141 mmol/L (135-145); Total Protein 7.8 g/dL (6.5-8.0)
[2025-03-14 11:38] LABS: Ferritin 206 ng/mL (10-250); TSH reflex Free T4 0.52 uIU/mL (0.32-4.0)
[2025-03-14 11:39] LABS: Folate 13.6 ng/mL (> or = 4.0); Vitamin B12 748 pg/mL (200-900)
[2025-03-18 13:29] LABS: Vitamin D 25-OH, D2 <4 ng/mL; Vitamin D 25-OH, D3 36 ng/mL; Vitamin D 25-OH, Total 36 ng/mL (30-100)
== END 2025-03-14 08:47 | disposition home or self-care (01) ==
LOC: HO.HMGCLDS 08:46
PROVIDERS: PCP Internal Medicine; Visit Provider Internal Medicine
DX: I10 Essential (primary) hypertension (principal); D51.0 Vitamin B12 deficiency anemia due to intrinsic factor deficiency; R20.2 Paresthesia of skin; F41.1 Generalized anxiety disorder; E78.9 Disorder of lipoprotein metabolism, unspecified; R73.01 Impaired fasting glucose; E66.01 Morbid (severe) obesity due to excess calories; Z68.41 Body mass index [BMI] 40.0-44.9, adult; Z79.899 Other long term (current) drug therapy
CPT/HCPCS: 36415; 80053; 82306; 82607; 82728; 82746; 83036; 84443; 85025; 96127

== ENCOUNTER 2025-04-24 09:00 | Outpatient (AMB) | payer BC, SELFPAY ==
--- NOTE | 2025-04-24 09:04 | A.OFFVIS_ITS ---
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 Intake Note: New patient dx cardiac arrhymias was seen years ago at [facility] for the same c/o palpitations Shelter Director Required: No Allergies doxycycline Allergy (Mild, Verified 03/14/25 08:48) Swelling latex Allergy (Mild, Verified 03/14/25 08:48) Itching levofloxacin [From Levaquin] Adverse Reaction (Mild, Verified 03/14/25 08:48) Swelling metronidazole [From Flagyl] Adverse Reaction (Mild, Verified 03/14/25 08:48) Swelling Medication List - Last Reconciled 04/24/25 by Joss Ga MD cyanocobalamin (vitamin B-12) 1,000 mcg IM .q month 30 days escitalopram oxalate 20 mg PO DAILY esomeprazole magnesium (Nexium 24HR) 20 mg PO DAILY hydrochlorothiazide 25 mg PO DAILY metoprolol tartrate 25 mg PO BID 90 days naproxen 500 mg PO BID psyllium seed (sugar) (Metamucil (sugar) oral powder) 1 tbsp PO DAILY simvastatin 20 mg PO DAILY 90 days syringe with needle (BD Luer-Karen Syringe) USE TO INJECT VITAMIN B-12 ONCE MONTHLY HPI Comments Details: Thank you for referring Doreen in cardiology consultation today for symptoms of palpitations. She is a pleasant 60-year-old female with longstanding history of hypertension as well as hyperlipidemia with prior history of palpitations many years ago. She was investigated but she does not know the outcome of those testing and was started on metoprolol at that time for both treating the arrhythmias/palpitations as well as high blood pressure. Over the last 6 months she has been having increasing symptoms of palpitation which led to Holter monitor few months ago. Holter monitor was consistent with isolated PVCs with total burden of less than 1% however patient has significant symptoms during dung t time and marked it more than 40 times correlating with isolated PVCs. Since then she continues to have these symptoms. She has cut down her caffeine intake. Despite that she continues to have symptoms. She has not noticed any other significant symptoms of exertional chest pain or shortness of breath although does not exercise on a regular basis. Denies any orthopnea, PND. No lightheadedness, syncope. Symptoms of isolated/fluttering in his chest mostly happening evening time and not during when she is working. She denies any recently increased personal professional stress. [facility] Family History Mother Hypertension Obesity Lymphedema Brain tumor (benign) Father Hypertension Family/Other Family history of prostate cancer Family history of breast cancer Social History Housing: House Patient Tobacco Use Status: Never used Tobacco e-Cigarette/Vaping Use: Never Used Second Hand Smoke Exposure: No service: No Current occupational status: employed Cognitive needs: No Hearing needs: No Vision needs: Yes Review of Systems Const Denies chills, Denies daytime sleepiness, Denies fatigue, Denies fever(s), Denies frequent falls, Denies poor appetite, Denies snoring, Denies stops breathing during sleep, Denies weakness, Denies weight gain and Denies weight loss Eyes Denies loss of vision ENT Denies dizziness and Denies hearing loss Card Denies chest pain, Denies claudication, Denies leg edema, Denies lightheadedness, Denies palpitations, Denies dyspnea, Denies dyspnea on exertion and Denies orthopnea Resp Denies cough, Denies excessive phlegm production, Denies dyspnea, Denies dyspnea on exertion, Denies snoring and Denies wheezing GI Denies abdominal pain, Denies hematochezia, Denies change in bowel habits, Denies nausea and Denies vomiting Denies urinary frequency and Denies dysuria Musc Denies arthralgias, Denies muscle weakness, Denies numbness and Denies other (frequent falls) Skin/Breast Denies nail changes and Denies rash Neuro Denies Abnormal speech present, Denies dizziness, Denies frequent falls, Denies loss of vision, Denies memory loss, Denies numbness and Denies weakness Psych Denies depression and Denies memory loss Endo Denies fatigue and Denies palpitations Benjie/Lymph Reports easy bruising and Reports other (anemia) Aller/Immun Denies wheezing Physical Exam Vital Signs: Last Vital Signs Pulse 71 04/24/25 09:05 BP 120/76 04/24/25 09:05 BMI result Body Mass Index 43.3 Const General: cooperative, comfortable, no acute distress, alert, awake and Physically active Nutritional Appearance: obese Orientation/consciousness: patient oriented x3 Limitations: no limitations HEENT Head: Yes normocephalic and Yes atraumatic Neck Neck: Yes trachea midline, Yes supple and Yes no JVD Resp Effort & Inspection: normal respiratory effort Auscultation: clear to auscultation bilaterally Cardio Jugular venous distension: no JVD Rate: regular rate Rhythm: regular rhythm Heart sounds: S1 normal heart sound present, S2 normal heart sound present, no click, no gallops and no murmurs GI Auscultation: normal bowel sounds Skin General skin exam: no rashes or lesions noted Neuro General: patient oriented x3 and no focal motor deficits Speech: No Abnormal speech present Extrem General: Yes no clubbing, cyanosis or edema Office Procedures EKG Details: EKG shows normal sinus rhythm with normal EKG [id number], Complete Assessment & Plan Assessment & Plan (1) PVCs (premature ventricular contractions): Code(s): I49.3 - Ventricular premature depolarization Category: Medical Plan: Highly symptomatic PVCs with total burden of less than 1% but increased frequency in the recent past. Patient was multiple risk factors for underlying structural heart disease. Will suggest to rule out obstructive coronary artery disease with exercise myocardial perfusion imaging as a cause for increased burden of PVCs as well as suggest an echocardiogram to evaluate for LV systolic and diastolic function to evaluate for valvular abnormality. These tests will be performed in near future. If she does have normal structure of the heart, discussed with her the isolated PVCs have a overall benign prognosis and at that point time treatment would be directed towards improving her symptoms but not affecting overall prognosis. At that point time we can probably increase her metoprolol to 50 mg b.i.d.. This was discussed with her. We discussed about pathophysiology of PVCs as well as potential exacerbation by stress as well as by stimulants. Therefore avoidance of caffeine and alcohol was discussed. Stress mitigation strategies was discussed. (2) Hypertension, essential: Code(s): I10 - Essential (primary) hypertension Category: Medical Plan: Hypertension which currently is well optimized. Continue current therapy. 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 Continue current therapy. Advised to monitor blood pressure and maintain a log. Goal blood pressure less than 130/84. Regular physical activity and weight loss program should be pursued. Continue aggressive lipid modification with goal LDL less than 100 mg/dL. Will follow up in the clinic in 2 months time, sooner p.r.n.. Thank you for allowing me to partake in her care Coding Level of Care Code New Pt Level 4 (56171) Complex EM visit Add On G2211 Diagnoses PVCs (premature ventricular contractions) I49.3 Hypertension, essential I10 CPT Codes EKG - CPT: 26821-[id number], Complete ([id number])
[2025-04-24 09:05] VITALS: BP 120/76; PULSE 71; BMI 43.3
== END 2025-04-24 09:27 | disposition home or self-care (01) ==
LOC: HO.HCS 09:01
PROVIDERS: PCP Internal Medicine; Visit Provider Internal Medicine Cardiovascular Disease
DX: I49.3 Ventricular premature depolarization (principal); I10 Essential (primary) hypertension
CPT/HCPCS: 93010; 99214

== ENCOUNTER → 2025-04-24 09:00 | Outpatient (BNVA) | payer BC, SELFPAY | PROVIDERS: PCP Internal Medicine; Visit Provider Internal Medicine Cardiovascular Disease | DX: I49.3 Ventricular premature depolarization (principal); I10 Essential (primary) hypertension | CPT/HCPCS: 93005 ==

== ENCOUNTER → 2025-06-08 07:38 | Outpatient (REF) | payer BC, SELFPAY ==
--- NOTE | 2025-06-08 07:41 | CA_ITS ---
Transthoracic Echocardiogram Patient (Last, First, Middle): Doreen Salazar, Gender: Female Date of : 1965 Age: 60 Procedure Date: 06/08/2025 Procedure Type: Transthoracic Echocardiogram Location: OP Height: 160.02 cm Weight: 110.68 kg BSA: 2.10 m2 Heart Rate: 70 bpm BP: 122 / 70 mmHg Director Product Management: EDITH Referring MD: Joss Ga MD Symptoms: I49.3 - Ventricular premature depolarization Study Quality: Fair parasternal/Adequate apical images ECG Rhythm: Sinus Conclusions: - The left ventricular systolic function is normal. The calculated ejection fraction is 66% by biplane method. - No obvious valvular pathology seen on this study. Findings Procedure Information The quality of the study was technically difficult. The study quality is limited by patients body habitus. Left Ventricle Normal left ventricular cavity size. The left ventricular systolic function is normal. The calculated ejection fraction is 66% by biplane method. There is no evidence of regional wall motion abnormalities. Evidence suggests grade I (mild) diastolic dysfunction. There is mild septal asymmetric hypertrophy. LV peak GLS -18.7%. Right Ventricle Normal right ventricular cavity size and systolic function. Atria Both atria are normal in size. Aortic Valve The aortic valve was not well visualized. There is no aortic valve stenosis. There is no aortic valve regurgitation. Mitral Valve The mitral valve appears normal. There is no mitral valve regurgitation. There is no mitral valve stenosis. Pulmonic Valve The pulmonic valve is likely normal. There is trace pulmonic valve regurgitation. Tricuspid Valve There is no tricuspid valve regurgitation. Tricuspid regurgitation envelope is inadequate for calculation of right ventricular systolic pressure. Great Vessels The asc aorta is normal in size. Venous The inferior vena cava was not well visualized. Pericardium/Pleural There is no evidence of pericardial effusion. Prior Study Comparison No prior study available for comparison. Recommendations, Care & Conclusions No obvious valvular pathology seen on this study. Measurements 2D Linear Measurements IVSd: 1.23 0.6-0.9/0.6-1.0 cm LVIDd: 4.05 3.9-5.3/4.2-5.9 cm LVIDd Index: 1.93 2.4-3.2/2.2-3.1 cm/m2 LVIDs: 2.49 2.0-3.6 cm LVPWd: 1.04 0.7-1.1 cm LV Mass: 193.45 67-162/88-224 g LV Mass Index: 92.12 43-95/49-115 g/m2 LVOT Diam: 2.00 3.0+(-)1.3 cm 2D Systolic Function EF 4C: 68.30 >55% EF 2C: 65.30 >55% EF BiP: 66.20 >55% Mitral Valve MV Pk E: 0.98 MV PK A: 0.96 MV Decel Time: 156.00 E/A: 1.00 E'Lateral: 6.42 E'Medial: 6.53 E/E' Med: 15.00 E/E' Lat: 15.20 PHT: 46.00 MVA PHT: 4.78 Decel [place]: 6.25 Aortic Valve AoV Pk Trav: 1.44 AoV Pk Grad: 8.00 MARCELO: 2.45 LVOT LVOT Pk Trav: 1.10 LVOT Mn Trav: 0.71 LVOT VTI: 0.25 LVOT Pk Grad: 5.00 LVOT Mn Grad: 3.00 LVOT Diam: 2.00 LVOT Area: 3.14 Diastolic Function MV Pk E: 0.98 MV Pk A: 0.96 E/A: 1.00 E'Medial: 6.53 E/E' Med: 15.00 E' Laterial: 6.42 E/E' Lat: 15.20 Right Ventricle TAPSE (mm): 27.70 TVS' Trav: 11.30 Great Vessels Aorta Sinus of Valsalva: 2.40 2.0-3.5 cm Ao Asc: 2.80 2.1-3.4 cm Pulmonary Valve PV Pk Trav: 0.67 Peak PV Grad: 2.00 Updated in Other Vendor System with Status of Final Shahzad Schultz MD electronically signed on 06/09/2025 1:23:19 PM with status of Final
== END ==
LOC: HO.CARD 07:38
PROVIDERS: PCP Internal Medicine; Visit Provider Internal Medicine Cardiovascular Disease
DX: I49.3 Ventricular premature depolarization (principal)
CPT/HCPCS: 93306

== ENCOUNTER → 2025-06-08 07:41 | Outpatient (BNV) | payer BC, SELFPAY | PROVIDERS: PCP Internal Medicine; Visit Provider Internal Medicine | DX: I42.2 Other hypertrophic cardiomyopathy (principal) | CPT/HCPCS: 93306; 93356 ==

== ENCOUNTER → 2025-06-28 08:23 | Outpatient (REF) | payer BC, SELFPAY ==
--- NOTE | ~2025-06-28 | NM_ITS ---
EXERCISE MYOCARDIAL PERFUSION STUDY INDICATION: PVCs TECHNIQUE: The patient was brought in for an exercise perfusion study on 06/28/2025. Patient performed exercise as per Alexey protocol and was injected 40 mCi of sestamibi once target heart rate was achieved. Images were obtained using the SPECT gamma camera interlaced with the gating device. Images were obtained in supine position. Resting perfusion study was performed on 06/29/2025. Patient was administered 40 mCi of sestamibi intravenously at rest. Images were then obtained in supine position. Total DLP 113 mGy-cm. Images were processed with the software and compared side to side in short axis, horizontal long axis and vertical long axis views. FINDINGS: Raw aquisition reviewed. The stress perfusion study showed decreased tracer uptake in the distal part of anterior wall, and inferior wall. There is improvement with CT attenuation correction and hence could be artifactual. The gated study shows normal LV systolic function with calculated LVEF of 71%. LV cavity is normal in size. The gated study shows normal wall thickening and contraction of segments. Resting study shows diminished tracer uptake in the distal part of anterior wall. There is improvement with CT attenuation correction suggestive of soft tissue attenuation artifact. Gating at rest reveals normal wall motion with ejection fraction at 43%, but visually appears higher. The findings are consistent with fixed defect in the distal anterior wall adjacent apex. Mild reversible perfusion defect in the distal inferior wall. Findings could be artifactual, but cannot exclude a small nontransmural infarct/mild ischemia. PA/PA cardiolite stress test IMPRESSION: 1. Myocardial perfusion imaging study shows small fixed defect in the distal anterior wall and adjacent apex with reversible component at the inferior apex. Artifactual versus small nontransmural infarct/mild ischemia. 2. Gated LVEF is 71% during stress and 43% during rest-visually appears higher. 3. Transient ischemic dilatation not present. EKG component of the test reported separately. Electronically signed by: Shahzad Schultz MD 07/01/2025 09:46 AM EDT
--- NOTE | 2025-06-28 08:25 | CA_ITS ---
Acquisition Time: 2025-06-28 08:52:00 Total Exercise Time: 00:05:01 Test Indications: PVC'S PALPITATIONS Medications: HCTZ ESCITALOPRAM METOPROLOL NAPROXEN SIMVASTATIN Protocol: GERARDO Max HR: 150 BPM 93% of Pred: 161 BPM Max BP: 144/74 mmHG Max Work Load: 6.8 METS Exercise stress test with exercise 5 mins 1 sec of Gerardo Protocol, achieving 93% MPHR, with reports of SOB, no chest pain, with frequent PVCs, with normotensive response to exercise. Without any EKG changes meeting criteria for ischemia. In recovery, breathing returned to baseline. Nculear images pending. Test reviewed with Dr. Schultz. Referred By: Joss Ga Electronically Signed By: Oliver Goldstein
--- OUTSIDE RECORDS SUMMARY | 2025-06-28 08:31 | XMS_ITS ---
Author Name [facility] Organization Unknown Care Team Organization Name Specialty Phone Email Start Date End Da te [facility] 09/29/2022 07/10/2024
== END ==
LOC: HO.CARD 08:23
PROVIDERS: PCP Internal Medicine; Visit Provider Internal Medicine Cardiovascular Disease
DX: I49.3 Ventricular premature depolarization (principal); R07.9 Chest pain, unspecified
CPT/HCPCS: 78452; 93017; A9500

== ENCOUNTER → 2025-06-28 08:25 | Outpatient (BNV) | payer BC, SELFPAY | PROVIDERS: PCP Internal Medicine | DX: I49.3 Ventricular premature depolarization (principal); R06.02 Shortness of breath | CPT/HCPCS: 78452; 93016; 93018 ==

== ENCOUNTER 2025-07-06 13:19 | Outpatient (AMB) | payer BC, SELFPAY ==
[2025-07-06 13:29] VITALS: BP 124/62; PULSE 72; BMI 43.0
--- NOTE | 2025-07-06 13:29 | A.OFFVIS_ITS ---
Vital Signs 07/06/25 13:29 Height 5 ft 3 in Weight 242 lb 15.19 oz BMI 43.0 BP 124/62 Blood Pressure Location Lt brachial Position Sitting Pulse 72 Pulse Source Pulse Oximeter Intake Visit Reasons: 2mth f/up-echo/mibi Intake Note: 2 mth f/up-echo /mibi Telephone Recorder Required: No Accompanied by: Self / Same As Patient Allergies doxycycline Allergy (Mild, Verified 03/14/25 08:48) Swelling latex Allergy (Mild, Verified 03/14/25 08:48) Itching levofloxacin (From Levaquin) Adverse Reaction (Mild, Verified 03/14/25 08:48) Swelling metronidazole (From Flagyl) Adverse Reaction (Mild, Verified 03/14/25 08:48) Swelling Medication List - Last Reconciled 07/06/25 by Oliver Goldstein NP cyanocobalamin (vitamin B-12) 1,000 mcg IM .q month 30 days escitalopram oxalate 20 mg PO DAILY esomeprazole magnesium (Nexium 24HR) 20 mg PO DAILY hydrochlorothiazide 25 mg PO DAILY metoprolol tartrate 25 mg PO BID 90 days naproxen 500 mg PO BID psyllium seed (sugar) (Metamucil (sugar) oral powder) 1 tbsp PO DAILY simvastatin 20 mg PO DAILY 90 days syringe with needle (BD Luer-Karen Syringe) USE TO INJECT VITAMIN B-12 ONCE MONTHLY HPI Comments Details: This is a 60-year-old female patient coming in for a follow-up visit. Patient with a history of hypertension, hyperlipidemia, obesity, and family history of coronary artery disease. Patient was previously seen in the office for palpitations. Patient had worn a Holter monitor that showed rare burden of PVCs correlating with her symptoms. Subsequently patient underwent an echo and a myocardial perfusion study. Today, patient reports shortness of breath with house chores such as doing her dishes. Patient is otherwise mostly sedentary and is denying any associated symptoms of chest pain, dizziness, orthopnea, PND, leg edema, presyncope or syncope. Patient notes that her father recently had a stent placed in 4 coronary artery disease. Patient is otherwise reporting compliance with all her medications. [facility] Family History Mother Hypertension Obesity Lymphedema Brain tumor (benign) Father Hypertension Family/Other Family history of prostate cancer Family history of breast cancer Social History Housing: House Patient Tobacco Use Status: Never used Tobacco e-Cigarette/Vaping Use: Never Used Second Hand Smoke Exposure: No service: No Current occupational status: employed Cognitive needs: No Hearing needs: No Vision needs: Yes Review of Systems Const Denies chills, Denies fatigue, Denies fever(s), Denies frequent falls, Denies weakness, Denies weight gain and Denies weight loss ENT Denies dizziness Card Denies chest pain, Denies leg edema, Denies lightheadedness, Denies palpitations, Denies dyspnea and Denies dyspnea on exertion Resp Denies cough, Denies dyspnea and Denies dyspnea on exertion GI Denies hematochezia Musc Denies abnormal gait, Denies muscle weakness, Denies numbness, Denies radiating pain into limb and Denies tingling Neuro Denies abnormal gait, Denies dizziness, Denies frequent falls, Denies numbness, Denies tingling and Denies weakness Endo Denies fatigue and Denies palpitations Physical Exam Vital Signs: Last Vital Signs Pulse 72 07/06/25 13:29 BP 124/62 07/06/25 13:29 BMI result Body Mass Index 43.0 Const General: cooperative, healthy appearing, comfortable and no acute distress Orientation/consciousness: patient oriented x3 HEENT Head: Yes normal to inspection Neck Neck: Yes normal visual inspection, Yes trachea midline and Yes supple Chest Chest palpation & inspection: normal inspection of the chest Resp Effort & Inspection: normal respiratory effort Auscultation: clear to auscultation bilaterally, no crackles, no rales, no rhonchi and no wheezes Cardio Jugular venous distension: no JVD Palpation: normal PMI Rate: regular rate Rhythm: regular rhythm Heart sounds: S1 normal heart sound present, S2 normal heart sound present, no click, no gallops, no murmurs and no rubs Peripheral pulses: Peripheral pulses 2+ throughout GI Inspection: Yes normal to inspection Palpation (GI): Soft to palpation Auscultation: normal bowel sounds Skin General skin exam: no rashes or lesions noted Neuro General: patient oriented x3 Extrem General: Yes normal to inspection, No no pedal edema and No calf tenderness Psych Appearance: grossly normal Mental Status: mental status grossly normal Speech and movement: Normal speech and movement present Assessment & Plan Assessment & Plan (1) Abnormal myocardial perfusion study: Code(s): R94.39 - Abnormal result of other cardiovascular function study Category: Medical Plan: 06/08/2025-patient underwent an echo study that showed normal LV systolic function with an ejection fraction at 66% with no wall motion abnormalities as well as no valvular pathology. 06/28/2025-patient underwent myocardial perfusion study that showed small fixed defect in the distal anterior wall and adjusted a PACs with reversible component at the inferior apex. Given above finding at ongoing symptoms of shortness of breath with exertion and multiple risk factors, we will proceed with a coronary CTA to assess coronary artery disease and extent of ischemic changes. Most recent LDL within goal of less than 70. Continue statin therapy. Further management depending on findings. (2) SOB (shortness of breath) on exertion: Code(s): R06.02 - Shortness of breath Category: Medical Plan: As above. (3) PVCs (premature ventricular contractions): Code(s): I49.3 - Ventricular premature depolarization Category: Medical Plan: Holter had shown PVCs burden of 1% however patient's symptoms all correlated with isolated PVCs. Currently on metoprolol 25 mg. In case of ongoing palpitations, we can increase it to 50 mg b.i.d.. (4) Hypertension, essential: Code(s): I10 - Essential (primary) hypertension Category: Medical Plan: Blood pressure is well-controlled. Continue current regimen. Advised monitoring blood pressures at home with a goal less than 130/80. (5) Lipid disorder: Code(s): E78.9 - Disorder of lipoprotein metabolism, unspecified Category: Medical Plan: As above. Advised heart healthy diet, regular exercise, med compliance, and management of vascular risk factors. Follow up after coronary CTA. In the interim, patient will call the office with any concerns or change in symptoms. Advised patient to seek ER care in case of exertional chest pain not resolved with rest. This note was generated using voice recognition software. While every effort has been made to ensure accuracy and proper radio station engineer, there may be occasional errors that could affect the content or meaning of the described symptoms. Orders: Orders CT Cardiac Coronary Angio Today R06.02 - Shortness of breath, R94.39 - Abnormal result of other cardiovascular function study Basic Metabolic Panel Today R94.39 - Abnormal result of other cardiovascular function study Coding Level of Care Code Est Pt Level 4 (26687) Complex EM visit Add On G2211 Diagnoses Abnormal myocardial perfusion study R94.39 SOB (shortness of breath) on exertion R06.02 PVCs (premature ventricular contractions) I49.3 Hypertension, essential I10 Lipid disorder E78.9 Time Spent (min) 33 Comment Time spent in reviewing the chart, test results, assessment, counseling and documentation.
== END 2025-07-06 13:53 | disposition home or self-care (01) ==
LOC: HO.HCS 13:20
PROVIDERS: PCP Internal Medicine
DX: R94.39 Abnormal result of other cardiovascular function study (principal); R06.02 Shortness of breath; I49.3 Ventricular premature depolarization; I10 Essential (primary) hypertension; E78.9 Disorder of lipoprotein metabolism, unspecified
CPT/HCPCS: 99214

== ENCOUNTER 2025-07-20 10:36 | Outpatient (AMB) | payer BC, SELFPAY ==
[2025-07-20 10:40] VITALS: BP 112/74; PULSE 75; RESP 17; TEMP 36.9; O2SAT 96; BMI 43.4
--- NOTE | 2025-07-20 10:40 | A.OFFPC_ITS ---
Vital Signs 07/20/25 10:40 Height 5 ft 3 in Weight 245 lb BMI 43.4 BP 112/74 Blood Pressure Location Lt brachial Position Sitting Respiration 17 Pulse 75 Pulse Source Pulse Oximeter Temp 98.4 F Temp Source Oral Pulse Oximetry (%) 96 Oxygen Delivery Method Room Air Intake Visit Reasons: 4m follow up Allergies doxycycline Allergy (Mild, Verified 07/20/25 10:40) Swelling latex Allergy (Mild, Verified 07/20/25 10:40) Itching levofloxacin (From Levaquin) Adverse Reaction (Mild, Verified 07/20/25 10:40) Swelling metronidazole (From Flagyl) Adverse Reaction (Mild, Verified 07/20/25 10:40) Swelling Medication List - Last Reconciled 07/20/25 by Javon Woody MD cyanocobalamin (vitamin B-12) 1,000 mcg IM .q month 30 days escitalopram oxalate 20 mg PO DAILY esomeprazole magnesium (Nexium 24HR) 20 mg PO DAILY hydrochlorothiazide 25 mg PO DAILY metoprolol tartrate 25 mg PO BID 90 days naproxen 500 mg PO BID psyllium seed (sugar) (Metamucil (sugar) oral powder) 1 tbsp PO DAILY simvastatin 20 mg PO DAILY 90 days syringe with needle (BD Luer-Karen Syringe) USE TO INJECT VITAMIN B-12 ONCE MONTHLY Tobacco use date assessed: 07/20/25 Dental Screening Dental Screen Date: 03/14/25 HPI 4m follow up HPI Details Longitudinal care visit History The patient is a 60 year old female presenting with hypertension management, palpitations, and potential coronary vascular blockage. Hypertension: - History of essential hypertension, cur rently managed with medications. - The blood pressure reading at this vis it was 112/74 mmHg. - No reports of new symptoms related to hypertension. Palpitations: - The patient experiences palpitations, with persistence noted at this visit. - Symptoms noted to occur on and off. - cardiology has recommended to increase metoprolol if patient continued to have palpitations currently she is taking metoprolol 25 b.i.d. - The palpitations have been ongoing but the duration and frequency since onset is not detailed. Potential vascular blockage: - The patient reports having undergone a stress test and echocardiogram. - Indication of a potential blockage, re quiring further testing, specifically a CTA (Computed Tomography Angiography). - No urgent chest pains reported; sympto ms described as intermittent and potentially related to gas, usually resolving on their own. - Concern expressed about a potential co ronary artery blockage identified during myocardial perfusion study indicating a small fixed defect in the distal anterior wall with a reversible component. Medical History: - Essential hypertension, well-controlle d. - Hyperlipidemia, treated with simvastat in. - Depression, managed with Lexapro. - History of PVCs (Premature Ventricular Contractions). - worsening palpitations - Irritable bowel syndrome. - Previous normal cardiac echo and myoca rdial perfusion studies with noted small defect. Medications: - Vitamin B12: indication not specified, but continues to be taken. - Lexapro: managing mood, dose not speci fied. - Hydrochlorothiazide 25 mg: taken for h ypertension management. - Metoprolol 25 mg: managing blood press ure and palpitations. - Simvastatin 20 mg: managing hyperlipid emia. Family History: - The patient's father recently had a st ent placed due to coronary artery disease. Problem List - Essential Hypertension - Palpitations getting worse - Possible Coronary Artery Blockage - Hyperlipidemia - morbid obesity - losing hair - pernicious anemia Diagnostic results - Labs: - CBC: No anemia noted. - Electrolytes: Within normal limits. - Kidney functions: Normal. - Liver enzymes: Within normal range. - B12 level: 748, within normal range. - Vitamin D: Data not available, discuss ed that thyroid function was normal previously. - Tests and Diagnostics: - Echocardiogra m showed normal left ventricular function with an ejection fraction of 66%, no wall motion abnormalities. - Myocardial perfusion study showing a s mall fixed defect in the distal anterior wall with a reversible component. [place] [facility] [place] [facility] - Cardiology: Follow-up pending with a Ashley REARDON scheduled at [facility] for potential coronary blockage assessment. Patient Instructions - Be attentive to appointment scheduling for the CTA at [facility]. - Hold hydrochlorothiazide dose as instr ucted. Increase metoprolol to 50 mg b.i.d. - Monitor for any increases in palpitati ons or new symptoms. - Continue current medications and dosag es unless otherwise instructed. - Report any concerning symptoms or molina ges to care providers. - okay to take biotin supplement for marcos r loss - follow-up 4 months, fasting labs are needed before visit - continue vitamin B12 supplement for pe rnicious anemia Review of Systems General: No fever no chills neurological: No headaches no dizziness ear nose throat: No sore throat no hearing difficulty no ear pain cardiovascular: No syncope, no chest pain gastrointestinal: No nausea vomiting or diarrhea endocrine: No polyuria polydipsia no heat intolerance genitourinary: No dysuria skin: No new complaints Physical Exam general: No acute distress HEENT: No acute findings neck: Supple respiratory system: Able to talk in full sentences, no audible wheeze, no stridor cardiovascular: S1-S2 RRR, patient reports palpitations gastrointestinal: No pain, patient reports intermittent chest pains, likely due to gas extremities: No new findings ELECTRIC SWITCH TESTER: Alert, awake, oriented x3, motor sensory intact skin: Normal turgor PFSH Surgical History Hx of hysterectomy Family History Mother Hypertension Obesity Lymphedema Brain tumor (benign) Father Hypertension Family/Other Family history of prostate cancer Family history of breast cancer Social History Housing: House Patient Tobacco Use Status: Never used Tobacco e-Cigarette/Vaping Use: Never Used Second Hand Smoke Exposure: No service: No Current occupational status: employed Cognitive needs: No Hearing needs: No Vision needs: Yes Questionnaire Thrive Questionnaire Date Thrive assessed: 11/26/24 I am a: Patient What is your living situation today?: I have a steady place to live Within the past 12 months, did the food you bought not last and you didn't have the money to get more?: Never true Within the past 12 months, did you worry whether your food would run out before you got money to buy more?: Never true Do you have trouble paying for medicines?: No Do you have trouble getting transportation to medical appointments?: No Do you have trouble paying your heating and electricity bill?: No Do you have trouble taking care of your child, family member or friend?: No Do you have trouble with day-to-day activities such as bathing, preparing meals, shopping, managing finances, etc.?: No Are you currently unemployed and looking for a job?: No Are you interested in more education?: No Please select the resources that you would like help with: None Currently or been in a relationship where the following occur: No concerns reported THRIVE Score: 0 KE-7 AMB Questionnaire KE-7 Date KE - 7 assessed: 03/14/25 Source: Developed by Drs. Errol Carrillo, Gabriela Bull, Mateo Jeter and colleagues, with an educational bhanu from [employer]. Physical exam (Primary Care) Vital Signs: Last Vital Signs Temp 98.4 F 07/20/25 10:40 Pulse 75 07/20/25 10:40 Resp 17 07/20/25 10:40 BP 112/74 07/20/25 10:40 Pulse Ox 96 07/20/25 10:40 Oxygen Delivery Method Room Air 07/20/25 10:40 BMI result Body Mass Index 43.4 Tobacco/Smoking Status: Tobacco use Status Tobacco use date assessed 07/20/25 07/20/25 10:45 Patient Tobacco Use Status Never used Tobacco 07/20/25 10:45 e-Cigarette/Vaping Use Never Used 07/20/25 10:45 Thrive Assessment: Date of Thrive Assessment Date Thrive assessed 11/26/24 07/20/25 10:45 Currently or been in a relationship where the following occur: No concerns reported Coding Level of Care Code Est Pt Level 4 (31529) Diagnoses Hypertension, essential I10 Lipid disorder E78.9 Fluttering heart I49.8 Anxiety, generalized F41.1 Impaired fasting blood sugar R73.01 Morbid obesity due to excess calories E66.01 Pernicious anemia D51.0 Time Spent (min) 30 Comment Reviewing chart/labs/cardiology notes/imaging/wtyk-bo-qeij/coordination of care Assessment & Plan Assessment & Plan (1) Hypertension, essential: Code(s): I10 - Essential (primary) hypertension Category: Medical (2) Lipid disorder: Code(s): E78.9 - Disorder of lipoprotein metabolism, unspecified Category: Medical (3) Fluttering heart: Code(s): I49.8 - Other specified cardiac arrhythmias Category: Medical (4) Anxiety, generalized: Code(s): F41.1 - Generalized anxiety disorder Category: Medical (5) Impaired fasting blood sugar: Code(s): R73.01 - Impaired fasting glucose Category: Medical (6) Morbid obesity due to excess calories: Comment: If your BMI is between 25 and 29.9, you are overweight. If your BMI is 30 or greater, you are obese. ___ Being obese is a problem, because it increases the risks of many different health problems. It can also make it hard for you to move, breathe, and do other things that people who are at a healthy weight can do easily. Plus, being obese can be hard emotionally. ___ What are the health risks of being obese? Being obese increases a persons risk of developing many health problems. Here are just a few examples: __ Diabetes High blood pressure, High cholesterol, Heart disease (including heart attacks) Stroke, Sleep apnea (a disorder in which you stop breathing for short periods while asleep) Asthma, Cancer __ Does being obese shorten a persons life? Yes. Studies show that people who are obese younger than people who are a healthy weight. They also show that the risk of goes up the heavier a person is. The degree of increased risk depends on how long the person has been obese, and on what other medical problems he or she has. , Reduce your carbohydrate intake and choose carbs that are complex. Remember as a general rule of thumb, avoid highly processed foods. If it's white and soft, it's probably been stripped of its nutritional value. Change white bread to whole wheat bread, white rice to brown rice, white potatoes to sweet potatoes, white pasta to whole wheat pasta. Monitor portion sizes too: protein should be no bigger than your fist. Limit your red meat intake to only once or twice a wk. Eat more white meat but make sure to avoid creamy sauces etc. Broiling, baking or grilling is best. Increase dark, green leafy vegetables and fruits. Code(s): E66.01 - Morbid (severe) obesity due to excess calories Category: Medical (7) Pernicious anemia: Code(s): D51.0 - Vitamin B12 deficiency anemia due to intrinsic factor deficiency Category: Medical Plan Longitudinal care visit History The patient is a 60 year old female presenting with hypertension management, palpitations, and potential coronary vascular blockage. Hypertension: - History of essential hypertension, currently managed with medications. - The blood pressure reading at this visit was 112/74 mmHg. - No reports of new symptoms related to hypertension. Palpitations: - The patient experiences palpitations, with persistence noted at this visit. - Symptoms noted to occur on and off. - cardiology has recommended to increase metoprolol if patient continued to have palpitations currently she is taking metoprolol 25 b.i.d. - The palpitations have been ongoing but the duration and frequency since onset is not detailed. Potential vascular blockage: - The patient reports having undergone a stress test and echocardiogram. - Indication of a potential blockage, requiring further testing, specifically a CTA (Computed Tomography Angiography). - No urgent chest pains reported; symptoms described as intermittent and potentially related to gas, usually resolving on their own. - Concern expressed about a potential coronary artery blockage identified during myocardial perfusion study indicating a small fixed defect in the distal anterior wall with a reversible component. Medical History: - Essential hypertension, well-controlled. - Hyperlipidemia, treated with simvastatin. - Depression, managed with Lexapro. - History of PVCs (Premature Ventricular Contractions). - worsening palpitations - Irritable bowel syndrome. - Previous normal cardiac echo and myocardial perfusion studies with noted small defect. Medications: - Vitamin B12: indication not specified, but continues to be taken. - Lexapro: managing mood, dose not specified. - Hydrochlorothiazide 25 mg: taken for hypertension management. - Metoprolol 25 mg: managing blood pressure and palpitations. - Simvastatin 20 mg: managing hyperlipidemia. Family History: - The patient's father recently had a stent placed due to coronary artery disease. Problem List - Essential Hypertension - Palpitations getting worse - Possible Coronary Artery Blockage - Hyperlipidemia - morbid obesity - losing hair - pernicious anemia Diagnostic results - Labs: - CBC: No anemia noted. - Electrolytes: Within normal limits. - Kidney functions: Normal. - Liver enzymes: Within normal range. - B12 level: 748, within normal range. - Vitamin D: Data not available, discussed that thyroid function was normal previously. - Tests and Diagnostics: - Echocardiogram showed normal left ventricular function with an ejection fraction of 66%, no wall motion abnormalities. - Myocardial perfusion study showing a small fixed defect in the distal anterior wall with a reversible component. [place] [facility] [place] [facility] - Cardiology: Follow-up pending with a CTA scheduled at [facility] for potential coronary blockage assessment. Patient Instructions - Be attentive to appointment scheduling for the CTA at [facility]. - Hold hydrochlorothiazide dose as instructed. Increase metoprolol to 50 mg b.i.d. - Monitor for any increases in palpitations or new symptoms. - Continue current medications and dosages unless otherwise instructed. - Report any concerning symptoms or changes to care providers. - okay to take biotin supplement for hair loss - follow-up 4 months, fasting labs are needed before visit - continue vitamin B12 supplement for pernicious anemia Orders: Orders Comprehensive Ovid. Panel Fast Today D51.0 - Vitamin B12 deficiency anemia due to intrinsic factor deficiency, E66.01 - Morbid (severe) obesity due to excess calories, E78.9 - Disorder of lipoprotein metabolism, unspecified, F41.1 - Generalized anxiety disorder, I10 - Essential (primary) hypertension, I49.8 - Other specified cardiac arrhythmias, R73.01 - Impaired fasting glucose Lipid Panel Today D51.0 - Vitamin B12 deficiency anemia due to intrinsic factor deficiency, E66.01 - Morbid (severe) obesity due to excess calories, E78.9 - Disorder of lipoprotein metabolism, unspecified, F41.1 - Generalized anxiety disorder, I10 - Essential (primary) hypertension, I49.8 - Other specified cardiac arrhythmias, R73.01 - Impaired fasting glucose Vitamin B12 Today D51.0 - Vitamin B12 deficiency anemia due to intrinsic factor deficiency, E66.01 - Morbid (severe) obesity due to excess calories, E78.9 - Disorder of lipoprotein metabolism, unspecified, F41.1 - Generalized anxiety disorder, I10 - Essential (primary) hypertension, I49.8 - Other specified cardiac arrhythmias, R73.01 - Impaired fasting glucose Complete Blood Count Auto Diff Today D51.0 - Vitamin B12 deficiency anemia due to intrinsic factor deficiency, E66.01 - Morbid (severe) obesity due to excess calories, E78.9 - Disorder of lipoprotein metabolism, unspecified, F41.1 - Generalized anxiety disorder, I10 - Essential (primary) hypertension, I49.8 - Other specified cardiac arrhythmias, R73.01 - Impaired fasting glucose Medications: Changed From metoprolol tartrate 25 mg PO BID 90 days 180 tabs 3RF To metoprolol tartrate 50 mg PO BID 180 tabs 0RF 90 days
== END 2025-07-20 11:21 | disposition home or self-care (01) ==
LOC: HO.HMCC 10:36
PROVIDERS: PCP Internal Medicine; Visit Provider Internal Medicine
DX: I10 Essential (primary) hypertension (principal); E78.9 Disorder of lipoprotein metabolism, unspecified; E66.01 Morbid (severe) obesity due to excess calories; Z68.41 Body mass index [BMI] 40.0-44.9, adult; I49.8 Other specified cardiac arrhythmias; F41.1 Generalized anxiety disorder; R73.01 Impaired fasting glucose; D51.0 Vitamin B12 deficiency anemia due to intrinsic factor deficiency

== ENCOUNTER 2025-10-10 09:59 | Outpatient (REF) | payer BC, SELFPAY ==
[2025-10-10 13:13] LABS: MANUAL DIFF FLAG NO
[2025-10-10 13:31] LABS: Hematocrit 40.4 % (37.0-47.0); Hemoglobin 13.9 g/dl (12.0-16.0); Imm Gran Abs Auto 0.02 X10*3/uL (0.00-0.03); Imm Gran Pct Auto 0.3 % (0.0-0.4); Lymphocytes Absolute Auto 1.9 X10*3/uL (1.2-4.9); Mean Corpuscular HGB Conc 34.4 g/dl (31.0-35.0); Mean Corpuscular Hemoglobin 26.8 pg (27.0-33.0); Mean Corpuscular Volume 77.8 fL (80.0-98.0); NRBC Abs Auto 0.000 X10*3/uL (0.0-0.012); NRBC Pct Auto 0.0 /100WBC (0.0-0.2); Platelet Count 249 X10*3/uL (160-400); Red Blood Count 5.19 X10*6/uL (4.20-5.50); White Blood Count 6.0 X10*3/uL (4.8-10.8)
[2025-10-10 14:34] LABS: Vitamin B12 737 pg/mL (200-900)
[2025-10-10 15:36] LABS: Anion Gap 8 (12-20); Blood Urea Nitrogen 22 mg/dL (9-16); Calcium 9.9 mg/dL (8.4-10.2); Carbon Dioxide 29 mmol/L (22-29); Chloride 103 mmol/L (96-108); Cholesterol 131 mg/dL (<200); Estimated Glomerular Filt Rate > 60; HDL Cholesterol 38 mg/dL (>40); Potassium 4.0 mmol/L (3.3-5.1); Sodium 136 mmol/L (135-145); Triglycerides 91 mg/dL (<150)
== END 2025-10-10 10:00 | disposition home or self-care (01) ==
LOC: HO.HMGCLDS 09:59
PROVIDERS: PCP Internal Medicine; Visit Provider Internal Medicine
DX: I11.9 Hypertensive heart disease without heart failure (principal); I49.8 Other specified cardiac arrhythmias; E78.9 Disorder of lipoprotein metabolism, unspecified; E66.01 Morbid (severe) obesity due to excess calories; F41.1 Generalized anxiety disorder; D51.0 Vitamin B12 deficiency anemia due to intrinsic factor deficiency; R73.01 Impaired fasting glucose; R94.39 Abnormal result of other cardiovascular function study
CPT/HCPCS: 36415; 80048; 80061; 82607; 85025

== ENCOUNTER 2025-11-08 08:21 | Outpatient (REF) | payer BC, SELFPAY ==
[2025-11-08 10:46] LABS: Alanine Aminotransferase 17 U/L (0-31); Albumin Level 4.0 g/dL (3.5-5.0); Alkaline Phosphatase 78 U/L (39-117); Anion Gap 10 (12-20); Aspartate Amino Transferase 19 U/L (5-31); Blood Urea Nitrogen 20 mg/dL (9-16); Calcium 9.5 mg/dL (8.4-10.2); Carbon Dioxide 29 mmol/L (22-29); Chloride 104 mmol/L (96-108); Estimated Glomerular Filt Rate > 60; Potassium 4.0 mmol/L (3.3-5.1); Sodium 139 mmol/L (135-145); Total Protein 7.6 g/dL (6.5-8.0)
[2025-11-08 11:12] LABS: Vitamin B12 764 pg/mL (200-900)
== END 2025-11-08 08:22 | disposition home or self-care (01) ==
LOC: HO.HMGCLDS 08:21
PROVIDERS: PCP Internal Medicine; Visit Provider Internal Medicine
DX: D51.0 Vitamin B12 deficiency anemia due to intrinsic factor deficiency (principal); I49.8 Other specified cardiac arrhythmias; E66.01 Morbid (severe) obesity due to excess calories; R20.2 Paresthesia of skin; F41.1 Generalized anxiety disorder; E78.9 Disorder of lipoprotein metabolism, unspecified; R73.01 Impaired fasting glucose; I10 Essential (primary) hypertension
CPT/HCPCS: 36415; 80053; 82607

== ENCOUNTER 2025-11-09 08:18 | Outpatient (AMB) | payer BC, SELFPAY ==
[2025-11-09 08:21] VITALS: BP 130/72; PULSE 74; O2SAT 97; BMI 43.6
--- NOTE | 2025-11-09 08:21 | A.OFFPC_ITS ---
Vital Signs 11/09/25 08:21 Height 5 ft 3 in Weight 246 lb BMI 43.6 BP 130/72 Blood Pressure Location Lt brachial Position Sitting Pulse 74 Pulse Source Pulse Oximeter Pulse Oximetry (%) 97 Intake Visit Reasons: 4m follow up Accompanied by: Self / Same As Patient Allergies doxycycline Allergy (Mild, Verified 11/09/25 08:21) Swelling latex Allergy (Mild, Verified 11/09/25 08:21) Itching levofloxacin (From Levaquin) Adverse Reaction (Mild, Verified 11/09/25 08:21) Swelling metronidazole (From Flagyl) Adverse Reaction (Mild, Verified 11/09/25 08:21) Swelling Medication List - Last Reconciled 11/09/25 by Javon Woody MD cyanocobalamin (vitamin B-12) 1,000 mcg IM .q month 30 days escitalopram oxalate 20 mg PO DAILY esomeprazole magnesium (Nexium 24HR) 20 mg PO DAILY metoprolol tartrate 50 mg PO BID 90 days naproxen 500 mg PO BID psyllium seed (sugar) (Metamucil (sugar) oral powder) 1 tbsp PO DAILY simvastatin 20 mg PO DAILY 90 days syringe with needle (BD Luer-Karen Syringe) USE TO INJECT VITAMIN B-12 ONCE MONTHLY Tobacco use date assessed: 07/20/25 Dental Screening Dental Screen Date: 03/14/25 HPI HPI Comments History of Present Illness Details History of Present Illness The patient is a 60 year old female presenting for follow-up and evaluation of a left earache Otalgia and Headache: - The patient reports an intermittent le ft earache, which is sometimes a sharp pain. - She has also experienced daily headach es for about a month, which she describes as feeling like a sinus headache. - The headaches are relieved with Tyleno l. - These symptoms started after she was t reated for a viral infection a few weeks ago at an urgent care facility. Lower Back Spasms: - The patient reports recurrent lower ba ck spasms. - She has a history of using a muscle re laxant, possibly Robaxin, which ran out a couple of years ago. - She currently uses a heating pad for [place]. Prediabetes: - Recent fasting labs from yesterday carmencita wed a blood glucose level of 107 mg/dL, indicating prediabetes. Chronic Conditions and Medications: - The patient takes Metoprolol 50 mg for hypertension and Simvastatin 20 mg for hyperlipidemia. - She recently discontinued hydrochlorot hiazide 25 mg. - She takes Escitalopram and reports her mood is fine, denying depression or anxiety. - She takes medication for heartburn, us es Metamucil for constipation, and takes Claritin for allergies. - She uses Naproxen as needed for joint pain. Medical History: - Hypertension - Hyperlipidemia - Prediabetes, newly diagnosed - Gastroesophageal reflux disease - Constipation - Allergic rhinitis - Mood disorder, treated with Escitalopr am - Back spasms - Arthralgia (joint pain) - Recent viral infection, treated at [facility] Medications: - Vitamin B12 - Escitalopram for mood - Unspecified medication for heartburn - Metoprolol 50 mg for hypertension - Naproxen as needed for joint pain - Simvastatin 20 mg for hyperlipidemia - Metamucil for constipation - Claritin for allergies - Discontinued: Hydrochlorothiazide 25 m g Diagnostic Results: - Recent labs (yesterday): - Fasting glucose: 107 mg/dL - Electrolytes: good - Kidney function: okay - Liver enzymes: all right - Vitamin B12: 764 - Labs from September: - CBC: no anemia PFSH Surgical History Hx of hysterectomy Family History Mother Hypertension Obesity Lymphedema Brain tumor (benign) Father Hypertension Family/Other Family history of prostate cancer Family history of breast cancer Social History Housing: House Patient Tobacco Use Status: Never used Tobacco e-Cigarette/Vaping Use: Never Used Second Hand Smoke Exposure: No service: No Current occupational status: employed Cognitive needs: No Hearing needs: No Vision needs: Yes Questionnaire Thrive Questionnaire Date Thrive assessed: 11/26/24 I am a: Patient What is your living situation today?: I have a steady place to live Within the past 12 months, did the food you bought not last and you didn't have the money to get more?: Never true Within the past 12 months, did you worry whether your food would run out before you got money to buy more?: Never true Do you have trouble paying for medicines?: No Do you have trouble getting transportation to medical appointments?: No Do you have trouble paying your heating and electricity bill?: No Do you have trouble taking care of your child, family member or friend?: No Do you have trouble with day-to-day activities such as bathing, preparing meals, shopping, managing finances, etc.?: No Are you currently unemployed and looking for a job?: No Are you interested in more education?: No Please select the resources that you would like help with: None Currently or been in a relationship where the following occur: No concerns reported THRIVE Score: 0 KE-7 AMB Questionnaire KE-7 Date KE - 7 assessed: 03/14/25 Source: Developed by Drs. Errol Carrillo, Gabriela Bull, Mateo Jeter and colleagues, with an educational bhanu from [employer]. Review of Systems Narrative Review of Systems - General: No fever no chills - Neurological: no dizziness - Ear nose throat: No sore throat no hearing difficulty no ear pain - Cardiovascular: No syncope, no chest pain, no palpitations - Gastrointestinal: No nausea vomiting or diarrhea - Endocrine: No polyuria polydipsia no heat intolerance - Genitourinary: No dysuria , no blood in urine Physical exam (Primary Care) Vital Signs: Last Vital Signs Pulse 74 11/09/25 08:21 BP 130/72 11/09/25 08:21 Pulse Ox 97 11/09/25 08:21 BMI result Body Mass Index 43.6 Tobacco/Smoking Status: Tobacco use Status Tobacco use date assessed 07/20/25 11/09/25 08:24 Patient Tobacco Use Status Never used Tobacco 11/09/25 08:24 e-Cigarette/Vaping Use Never Used 11/09/25 08:24 Thrive Assessment: Date of Thrive Assessment Date Thrive assessed 11/26/24 11/09/25 08:24 Currently or been in a relationship where the following occur: No concerns reported Narrative Physical Exam General: No acute distress HEENT: Left ear blocked due to wax, occasional sharp pain, post irrigation, there is some erythema in ear Neck: Supple Respiratory system: Able to talk in full sentences, no audible wheeze Cardiovascular: S1-S2 regular in rate and rhythm Gastrointestinal: No pain Extremities: No new findings [employer]: Alert awake oriented x3 motor intact Skin: Normal turgor Coding Level of Care Code Est Pt Level 4 (14078) Diagnoses Hypertension, essential I10 Lipid disorder E78.9 Anxiety, generalized F41.1 Ear pain, left H92.02 Impacted cerumen, left ear H61.22 Pernicious anemia D51.0 Morbid obesity due to excess calories E66.01 Impaired fasting blood sugar R73.01 Irritable bowel syndrome with both constipation and diarrhea K58.2 Irritable bowel syndrome type: with both diarrhea and constipation Chronic GERD K21.9 Time Spent (min) 30 Comment chart review, face to face, ear cleaning, coordination of care Assessment & Plan Assessment & Plan (1) Hypertension, essential: Code(s): I10 - Essential (primary) hypertension Category: Medical (2) Lipid disorder: Code(s): E78.9 - Disorder of lipoprotein metabolism, unspecified Category: Medical (3) Anxiety, generalized: Code(s): F41.1 - Generalized anxiety disorder Category: Medical (4) Ear pain, left: Code(s): H92.02 - Otalgia, left ear Category: Medical (5) Impacted cerumen, left ear: Code(s): H61.22 - Impacted cerumen, left ear Category: Medical (6) Pernicious anemia: Code(s): D51.0 - Vitamin B12 deficiency anemia due to intrinsic factor deficiency Category: Medical (7) Morbid obesity due to excess calories: Comment: If your BMI is between 25 and 29.9, you are overweight. If your BMI is 30 or greater, you are obese. ___ Being obese is a problem, because it increases the risks of many different health problems. It can also make it hard for you to move, breathe, and do other things that people who are at a healthy weight can do easily. Plus, being obese can be hard emotionally. ___ What are the health risks of being obese? Being obese increases a persons risk of developing many health problems. Here are just a few examples: __ Diabetes High blood pressure, High cholesterol, Heart disease (including heart attacks) Stroke, Sleep apnea (a disorder in which you stop breathing for short periods while asleep) Asthma, Cancer __ Does being obese shorten a persons life? Yes. Studies show that people who are obese younger than people who are a healthy weight. They also show that the risk of goes up the heavier a person is. The degree of increased risk depends on how long the person has been obese, and on what other medical problems he or she has. , Reduce your carbohydrate intake and choose carbs that are complex. Remember as a general rule of thumb, avoid highly processed foods. If it's white and soft, it's probably been stripped of its nutritional value. Change white bread to whole wheat bread, white rice to brown rice, white potatoes to sweet potatoes, white pasta to whole wheat pasta. Monitor portion sizes too: protein should be no bigger than your fist. Limit your red meat intake to only once or twice a wk. Eat more white meat but make sure to avoid creamy sauces etc. Broiling, baking or grilling is best. Increase dark, green leafy vegetables and fruits. Code(s): E66.01 - Morbid (severe) obesity due to excess calories Category: Medical (8) Impaired fasting blood sugar: Code(s): R73.01 - Impaired fasting glucose Category: Medical (9) Irritable bowel syndrome: Code(s): K58.9 - Irritable bowel syndrome, unspecified Category: Medical Qualifiers: Irritable bowel syndrome type: with both diarrhea and constipation Qualified Code(s): K58.2 - Mixed irritable bowel syndrome (10) Chronic GERD: Code(s): K21.9 - Gastro-esophageal reflux disease without esophagitis Category: Medical Plan Problem List - Otalgia, left ear - Cerumen impaction, left ear - Prediabetes - Back spasms - Sinus headache - Allergic rhinitis - Gastroesophageal reflux disease - Constipation - Hypertension - Hyperlipidemia - Arthralgia Plan - Earache/Headache: The left earache is attributed to cerumen impaction found on exam, and the headache is likely post-viral. - Ear lavage of the left ear will be performed today. i tried to clean it with loop, antibiotic sent for erythema - If the ear lavage is not successful, the patient is advised to use wax- softening drops. - Back Spasms: An order for a lumbar spine X-ray will be placed. - A new prescription for Cyclobenzaprine will be sent to the mail-order pharmacy to manage back spasms. - Prediabetes: The patient was counseled on her recent fasting glucose of 107 mg/dL and the diagnosis of prediabetes, with an emphasis on dietary control. - Medications: Continue current medications as prescribed. - Follow-up: The patient will return for a follow-up visit in February. Medications: New cyclobenzaprine 5 mg PO BEDTIME PRN 90 tabs 0RF muscle spasm Discontinued hydrochlorothiazide Discontinued Reason: Doctor's Order 25 mg PO DAILY 90 tabs 3RF
== END 2025-11-09 08:49 | disposition home or self-care (01) ==
LOC: HO.HMCC 08:19
PROVIDERS: PCP Internal Medicine; Visit Provider Internal Medicine
DX: I10 Essential (primary) hypertension (principal); E78.9 Disorder of lipoprotein metabolism, unspecified; E66.01 Morbid (severe) obesity due to excess calories; Z68.41 Body mass index [BMI] 40.0-44.9, adult; F41.1 Generalized anxiety disorder; H92.02 Otalgia, left ear; H61.22 Impacted cerumen, left ear; D51.0 Vitamin B12 deficiency anemia due to intrinsic factor deficiency; R73.01 Impaired fasting glucose; K58.2 Mixed irritable bowel syndrome; K21.9 Gastro-esophageal reflux disease without esophagitis

== ENCOUNTER → 2025-11-09 08:18 | Outpatient (BNVA) | payer BC, SELFPAY | PROVIDERS: PCP Internal Medicine; Visit Provider Internal Medicine | DX: H61.22 Impacted cerumen, left ear (principal) | CPT/HCPCS: 69209 ==